=== PATIENT | female | born 1945 | race Caucasian/White ===

== ENCOUNTER 2020-11-17 12:23 | Inpatient (IN) | payer MEDICARE, OTHER, SELFPAY ==
[2020-11-17 14:03] VITALS: BP 113/61; PULSE 82; RESP 18; TEMP 36.2; O2SAT 99; BMI 18.6
[2020-11-17 14:18] LABS: MANUAL DIFF FLAG NO
[2020-11-17 14:22] LABS: Basophils Absolute Auto 0.1 X10*3/uL (0.0-0.2); Basophils Percent Auto 0.6 % (0-2); Eosinophils Absolute Auto 0.2 X10*3/uL (0.0-0.4); Hematocrit 42.3 % (37-47); Hemoglobin 13.9 g/dl (12.0-16.0); Imm Gran Abs Auto 0.02 X10*3/uL (0.00-0.03); Imm Gran Pct Auto 0.2 % (0.0-0.4); Lymphocytes Absolute Auto 1.5 X10*3/uL (1.2-4.9); Lymphocytes Percent Auto 15.3 % (20-40); Mean Corpuscular HGB Conc 32.9 g/dl (31.0-35.0); Mean Corpuscular Hemoglobin 28.7 pg (27.0-33.0); Mean Corpuscular Volume 87.2 fL (80-98); Mean Platelet Volume 8.7 fL (9.4-12.3); Monocytes Percent Auto 9.9 % (2-11); Neutrophils Absolute Auto 6.9 X10*3/uL (2.0-8.3); Platelet Count 317 X10*3/uL (160-400); Red Blood Count 4.85 X10*6/uL (4.20-5.50); Red Cell Distribution Width 13.1 % (11.0-16.0); White Blood Count 9.7 X10*3/uL (4.8-10.8)
[2020-11-17 14:30] LABS: Glucose Urine UA NEG (NEG); Leukocyte Esterase Urine 2+ (NEG); Nitrite Urine NEG (NEG); Specific Gravity - Urine <= 1.005 (1.005-1.025); UACC Culture Trigger YES; Urine Blood 1+ (NEG); Urine Ketones NEG (NEG); Urine Protein NEG (NEG-TRACE)
[2020-11-17 14:35] LABS: Appearance Urine HAZY; Color Urine YELLOW
[2020-11-17 14:40] LABS: Mucus Urine 1+ /LPF; RBC Urine 0 /HPF (0); Squamous Epithelial Cell Urine 1+ /LPF; UACC CULT YES
[2020-11-17 14:54] LABS: Anion Gap 10 (12-20); Blood Urea Nitrogen 18 mg/dL (9-16); Calcium 10.6 mg/dL (8.4-10.2); Carbon Dioxide 24 mmol/L (22-29); Chloride 111 mmol/L (96-108); Creatinine Clr Calc Pharmacy 34.4; Estimated Glomerular Filt Rate 45; Glucose Random 78 mg/dL (60-115); Sodium 141 mmol/L (135-145)
[2020-11-17 16:21] VITALS: BP 121/50; PULSE 79; RESP 17; TEMP 37; O2SAT 98
--- NOTE | 2020-11-17 16:24 | PC.NURSE ---
patient a&ox3, vss, pt awaiting ed provider, denies si/hi, will continue to monitor
--- NOTE | 2020-11-17 16:39 | ECG_ITS ---
Test Reason : GENERAL MEDICAL Blood Pressure : / mmHG Vent. Rate : 070 BPM Atrial Rate : 070 BPM P-R Int : 120 ms QRS Dur : 084 ms QT Int : 396 ms P-R-T Axes : 042 035 084 degrees QTc Int : 427 ms Normal sinus rhythm Normal ECG No previous ECGs available Referred By: Angela Morton Electronically Signed By:GAL NVOA MD
--- NOTE | 2020-11-17 16:59 | ED_ITS ---
HPI - Psych General Chief Complaint: Psychiatric Symptoms <Angela Morton NP - Last Filed: 11/18/20 00:40> Stated Complaint: depression <DAT Lazo Last Filed: 11/18/20 00:40> Time Seen by Provider: 11/17/20 16:07 <Angela Morton NP - Last Filed: 11/18/20 00:40> Source: patient <Angela Morton NP - Last Filed: 11/18/20 00:40> Mode of arrival: ambulatory <DAT Lazo Last Filed: 11/18/20 00:40> Limitations: no limitations <Angela Morton NP - Last Filed: 11/18/20 00:40> History of Present Illness HPI Narrative: 75-year-old female with a past medical history of depression, hypothyroidism , high cholesterol here with complaints of increasing depression. Patient tells me she had been taken off her lithium but restarted this ap proximately 2 weeks ago with symbiax. This is being prescribed by her psychiatrist and [place]. She did moved to [place] about 2 months ago and is working on establishing a psychiatrist here in [place]. Patient tells me that over the last week her depression has been getting worse. She tells me her has had to bathe her and wash her hair. She has had very little appetite and has had no desire to get out of bed. No suicidal thoughts. No substance use <DAT Lazo Last Filed: 11/18/20 00:40> Related Data Home Medications: Home Medications Medication Instructions Recorded Confirmed atorvastatin 20 mg tablet 1 tab PO DAILY 11/17/20 11/17/20 diazepam 10 mg tablet 1 tab PO BEDTIME 11/17/20 11/17/20 levothyroxine 50 mcg tablet 1 tab PO DAILY 11/17/20 11/17/20 linaclotide 145 mcg capsule 1 cap PO DAILY 11/17/20 11/17/20 (Linzess) lithium carbonate 150 mg capsule 1 cap PO BEDTIME 11/17/20 11/17/20 olanzapine-fluoxetine 3 mg-25 mg 1 cap PO BEDTIME 11/17/20 11/17/20 capsule polyethylene glycol 3350 17 17 g PO QPM 11/17/20 11/17/20 gram/dose oral powder (Miralax) Vitamin D3 1 PO 11/18/20 acetylcysteine 600 mg capsule (NAC) 600 mg PO BID 11/18/20 11/18/20 cholecalciferol (vitamin D3) 50 50 mcg PO DAILY 11/18/20 11/18/20 mcg (2,000 unit) capsule melatonin 10 mg tablet 10 mg PO BEDTIME PRN 11/18/20 11/18/20 <Angela Morton NP - Last Filed: 11/18/20 00:40> Allergies/Adverse Reactions: Allergies Allergy/AdvReac Type Severity Reaction Status Date / Time No Known Allergies Allergy Verified 11/17/20 14:02 <Angela Morton NP - Last Filed: 11/18/20 00:40> Review of Systems Review of Systems: Yes all other systems are reviewed and are negative <Angela Morton NP - Last Filed: 11/18/20 00:40> Constitutional: Constitutional: Reports no additional constitutional complaints, Denies body ache(s), Denies chills, Denies fever(s), Denies headache(s) and Denies weakness <Angela Morton NP - Last Filed: 11/18/20 00:40> Eyes: Eyes: Reports no additional eye complaints and Denies change in vision <Angela Morton NP - Last Filed: 11/18/20 00:40> ENT: Reports system reviewed and no additional complaints, except as documented, Denies dizziness, Denies headache(s), Denies nasal congestion, Denies nasal discharge and Denies neck pain <Angela Morton NP - Last Filed: 11/18/20 00:40> Cardiovascular: Cardiovascular: Reports no additional cardiovascular complaints, Denies chest pain, Denies leg edema and Denies dyspnea <Angela Morton NP - Last Filed: 11/18/20 00:40> Respiratory: Respiratory: Reports no additional respiratory complaints, Denies cough and Denies dyspnea <Angela Morton NP - Last Filed: 11/18/20 00:40> Gastrointestinal: Gastrointestinal: Reports no additional gastrointestinal complaints, Denies abdominal pain, Denies diarrhea, Denies nausea and Denies vomiting <Angela Morton NP - Last Filed: 11/18/20 00:40> Genitourinary: Genitourinary: Reports no additional female genitourinary complaints and Denies urinary incontinence <Angela Morton NP - Last Filed: 11/18/20 00:40> Musculoskeletal: Musculoskeletal: Reports no additional musculoskeletal complaints, Denies back pain, Denies arthralgias, Denies joint swelling, Denies neck pain, Denies numbness and Denies tingling <Angela Morton NP - Last Filed: 11/18/20 00:40> Integumentary/Breasts: Skin/Breast: Reports system reviewed and no additional complaints, except as docu and Denies rash <Angela Morton NP - Last Filed: 11/18/20 00:40> Neurologic: Reports system reviewed and no additional complaints, except as documented, Denies dizziness, Denies headache(s), Denies numbness, Denies tingling and Denies weakness <Angela Morton NP - Last Filed: 11/18/20 00:40> Psychiatric: Psychiatric: Denies anxiety, Reports depression, Denies vasquez llucinations, Denies homicidal ideation and Denies suicidal ideation <Angela Morton NP - Last Filed: 11/18/20 00:40> PMFSH Past Medical History Attestation statement: The following information was validated with the patient. <Angela Morton NP - Last Filed: 11/18/20 00:40> Source: old records reviewed and nursing notes reviewed <Angela Morton NP - Last Filed: 11/18/20 00:40> Medical History: Medical History (Updated 11/17/20 @ 17:40 by Angela Morton NP) Depression High cholesterol Hypothyroidism <Angela Morton NP - Last Filed: 11/18/20 00:40> Surgical History: Surgical History (Updated 11/17/20 @ 14:05 by Ana Lopez) Tubal ligation status <Angela Morton NP - Last Filed: 11/18/20 00:40> Social History Social History: Social History Patient Tobacco Use Status: Never used Tobacco Use of substances other than those prescribed or required for medical reasons: No Advance Directives: No Advance Directives Information Provided: Yes <Angela Morton NP - Last Filed: 11/18/20 00:40> Physical Exam Vital Signs: Vital Signs: Last Vital Signs Temp 98.4 F 11/18/20 00:32 Pulse 79 11/18/20 00:32 Resp 15 11/18/20 00:32 BP 140/95 H 11/18/20 00:32 Pulse Ox 97 11/18/20 00:32 Body Mass Index 18.6 <Angela Morton NP - Last Filed: 11/18/20 00:40> Vital Signs: Last Vital Signs Temp 98.4 F 11/18/20 00:32 Pulse 79 11/18/20 00:32 Resp 15 11/18/20 00:32 BP 140/95 H 11/18/20 00:32 Pulse Ox 97 11/18/20 00:32 Body Mass Index 18.6 <VIVIANA Shahid - Last Filed: 11/18/20 11:15> Course Course Course Narrative: 75-year-old female with a past medical history of depression, high cholesterol, hypothyroidism here with complaints of increasing depression despite medication changes with inability perform ADLs requiring assistance from her over the last week. No suicidal thoughts. History of inpatient admission for depression in the past and feels that this would be helpful for her today. No physical complaints. No concern for acute ingestion or trauma. Due to age will check labs, drug screen, EKG. Care team consult ordered. 1740-Seen by care team. Plan for inpatient BS voluntary. 0040-PLACE IN PHYSICIAN OBSERVATION PENDING PLACEMENT <Angela Morton NP - Last Filed: 11/18/20 00:40> Reevaluation(s) Reevaluation #1: 11/18/20 10 am - physician observation continued. Patient is an inpatient bed search, voluntary. No SI. She is calm and cooperative, vitally stable. No overnight events. Neuro is intact, RRR and clear lungs. Will continue to monitor. <VIVIANA Shahid - Last Filed: 11/18/20 11:15> MDM - Psych Medical Records Attestation: I reviewed the patient's medical records. <Angela Morton NP - Last Filed: 11/18/20 00:40> Lab Data Attestation: I reviewed the patient's lab results. <Angela Morton NP - Last Filed: 11/18/20 00:40> Result diagrams: : 11/17/20 14:12 11/17/20 14:12 <Angela Morton NP - Last Filed: 11/18/20 00:40> Labs: Lab Results 11/17/20 11/17/20 11/17/20 Range/Units 14:12 14:12 14:20 WBC 9.7 (4.8-10.8) X10*3/uL RBC 4.85 (4.20-5.50) X10*6/uL Hgb 13.9 (12.0-16.0) g/dl Hct 42.3 (37-47) % MCV 87.2 (80-98) fL MCH 28.7 (27.0-33.0) pg MCHC 32.9 (31.0-35.0) g/dl RDW 13.1 (11.0-16.0) % Plt Count 317 (160-400) X10*3/uL MPV 8.7 L (9.4-12.3) fL Immature Gran % (Auto) 0.2 (0.0-0.4) % Neut % (Auto) 72.0 (45-73) % Lymph % (Auto) 15.3 L (20-40) % [place] % (Auto) 9.9 (2-11) % Eos % (Auto) 2.0 (0-4) % Baso % (Auto) 0.6 (0-2) % Lymph # (Auto) 1.5 (1.2-4.9) X10*3/uL [place] # (Auto) 1.0 (0.1-1.2) X10*3/uL Eos # (Auto) 0.2 (0.0-0.4) X10*3/uL Baso # (Auto) 0.1 (0.0-0.2) X10*3/uL Abs Immat Gran (auto) 0.02 (0.00-0.03) X10*3/uL Absolute Neuts (auto) 6.9 (2.0-8.3) X10*3/uL Absolute Nucleated RBC 0.000 (0.0-0.012) X10*3/uL Nucleated RBC % (auto) 0.0 (0.0-0.2) /100WBC Sodium 141 (135-145) mmol/L Potassium 4.0 (3.3-5.1) mmol/L Chloride 111 H (96-108) mmol/L Carbon Dioxide 24 (22-29) mmol/L Anion Gap 10 L (12-20) BUN 18 H (9-16) mg/dL Creatinine 1.18 (0.5-1.4) mg/dL Estim Creat Clear Calc 34.4 Estimated GFR 45 Random Glucose 78 (60-115) mg/dL Calcium 10.6 H (8.4-10.2) mg/dL TSH 0.62 (0.32-4.0) uIU/mL Urine Color YELLOW Urine Appearance HAZY Urine pH 6.0 (5.0-8.0) Ur Specific [place] <= 1.005 (1.005-1.025) Urine Protein NEG (NEG-TRACE) MG/DL Urine Glucose (UA) NEG (NEG) MG/DL Urine Ketones NEG (NEG) MG/DL Urine Blood 1+ H (NEG) Urine Nitrite NEG (NEG) Ur Leukocyte Esterase 2+ H (NEG) Urine RBC 0 (0) /HPF Urine WBC 1-4 (0-4) /HPF Ur Squamous Epith Cells 1+ /LPF Urine Bacteria NONE /LPF Urine Mucus 1+ /LPF [place] (0.60-1.20) mmol/L Ethyl Alcohol mg/dL Coronavirus (PCR) (Negative) Influenza Type A (PCR) (Negative) Influenza Type B (PCR) (Negative) RSV RNA Qual (PCR) (Negative) 11/17/20 11/17/20 11/17/20 Range/Units 17:08 17:08 17:08 WBC (4.8-10.8) X10*3/uL RBC (4.20-5.50) X10*6/uL Hgb (12.0-16.0) g/dl Hct (37-47) % MCV (80-98) fL MCH (27.0-33.0) pg MCHC (31.0-35.0) g/dl RDW (11.0-16.0) % Plt Count (160-400) X10*3/uL MPV (9.4-12.3) fL Immature Gran % (Auto) (0.0-0.4) % Neut % (Auto) (45-73) % Lymph % (Auto) (20-40) % [place] % (Auto) (2-11) % Eos % (Auto) (0-4) % Baso % (Auto) (0-2) % Lymph # (Auto) (1.2-4.9) X10*3/uL [place] # (Auto) (0.1-1.2) X10*3/uL Eos # (Auto) (0.0-0.4) X10*3/uL Baso # (Auto) (0.0-0.2) X10*3/uL Abs Immat Gran (auto) (0.00-0.03) X10*3/uL Absolute Neuts (auto) (2.0-8.3) X10*3/uL Absolute Nucleated RBC (0.0-0.012) X10*3/uL Nucleated RBC % (auto) (0.0-0.2) /100WBC Sodium (135-145) mmol/L Potassium (3.3-5.1) mmol/L Chloride (96-108) mmol/L Carbon Dioxide (22-29) mmol/L Anion Gap (12-20) BUN (9-16) mg/dL Creatinine (0.5-1.4) mg/dL Estim Creat Clear Calc Estimated GFR Random Glucose (60-115) mg/dL Calcium (8.4-10.2) mg/dL TSH (0.32-4.0) uIU/mL Urine Color Urine Appearance Urine pH (5.0-8.0) Ur Specific [place] (1.005-1.025) Urine Protein (NEG-TRACE) MG/DL Urine Glucose (UA) (NEG) MG/DL Urine Ketones (NEG) MG/DL Urine Blood (NEG) Urine Nitrite (NEG) Ur Leukocyte Esterase (NEG) Urine RBC (0) /HPF Urine WBC (0-4) /HPF Ur Squamous Epith Cells /LPF Urine Bacteria /LPF Urine Mucus /LPF [place] 0.22 L (0.60-1.20) mmol/L Ethyl Alcohol < 10 mg/dL Coronavirus (PCR) NEGATIVE (Negative) Influenza Type A (PCR) NEGATIVE (Negative) Influenza Type B (PCR) NEGATIVE (Negative) RSV RNA Qual (PCR) NEGATIVE (Negative) <Angela Morton NP - Last Filed: 11/18/20 00:40> Lab Results 11/17/20 11/17/20 11/17/20 Range/Units 14:12 14:12 14:20 WBC 9.7 (4.8-10.8) X10*3/uL RBC 4.85 (4.20-5.50) X10*6/uL Hgb 13.9 (12.0-16.0) g/dl Hct 42.3 (37-47) % MCV 87.2 (80-98) fL MCH 28.7 (27.0-33.0) pg MCHC 32.9 (31.0-35.0) g/dl RDW 13.1 (11.0-16.0) % Plt Count 317 (160-400) X10*3/uL MPV 8.7 L (9.4-12.3) fL Immature Gran % (Auto) 0.2 (0.0-0.4) % Neut % (Auto) 72.0 (45-73) % Lymph % (Auto) 15.3 L (20-40) % [place] % (Auto) 9.9 (2-11) % Eos % (Auto) 2.0 (0-4) % Baso % (Auto) 0.6 (0-2) % Lymph # (Auto) 1.5 (1.2-4.9) X10*3/uL [place] # (Auto) 1.0 (0.1-1.2) X10*3/uL Eos # (Auto) 0.2 (0.0-0.4) X10*3/uL Baso # (Auto) 0.1 (0.0-0.2) X10*3/uL Abs Immat Gran (auto) 0.02 (0.00-0.03) X10*3/uL Absolute Neuts (auto) 6.9 (2.0-8.3) X10*3/uL Absolute Nucleated RBC 0.000 (0.0-0.012) X10*3/uL Nucleated RBC % (auto) 0.0 (0.0-0.2) /100WBC Sodium 141 (135-145) mmol/L Potassium 4.0 (3.3-5.1) mmol/L Chloride 111 H (96-108) mmol/L Carbon Dioxide 24 (22-29) mmol/L Anion Gap 10 L (12-20) BUN 18 H (9-16) mg/dL Creatinine 1.18 (0.5-1.4) mg/dL Estim Creat Clear Calc 34.4 Estimated GFR 45 Random Glucose 78 (60-115) mg/dL Calcium 10.6 H (8.4-10.2) mg/dL TSH 0.62 (0.32-4.0) uIU/mL Urine Color YELLOW Urine Appearance HAZY Urine pH 6.0 (5.0-8.0) Ur Specific [place] <= 1.005 (1.005-1.025) Urine Protein NEG (NEG-TRACE) MG/DL Urine Glucose (UA) NEG (NEG) MG/DL Urine Ketones NEG (NEG) MG/DL Urine Blood 1+ H (NEG) Urine Nitrite NEG (NEG) Ur Leukocyte Esterase 2+ H (NEG) Urine RBC 0 (0) /HPF Urine WBC 1-4 (0-4) /HPF Ur Squamous Epith Cells 1+ /LPF Urine Bacteria NONE /LPF Urine Mucus 1+ /LPF [place] (0.60-1.20) mmol/L Ethyl Alcohol mg/dL Coronavirus (PCR) (Negative) Influenza Type A (PCR) (Negative) Influenza Type B (PCR) (Negative) RSV RNA Qual (PCR) (Negative) 11/17/20 11/17/20 11/17/20 Range/Units 17:08 17:08 17:08 WBC (4.8-10.8) X10*3/uL RBC (4.20-5.50) X10*6/uL Hgb (12.0-16.0) g/dl Hct (37-47) % MCV (80-98) fL MCH (27.0-33.0) pg MCHC (31.0-35.0) g/dl RDW (11.0-16.0) % Plt Count (160-400) X10*3/uL MPV (9.4-12.3) fL Immature Gran % (Auto) (0.0-0.4) % Neut % (Auto) (45-73) % Lymph % (Auto) (20-40) % [place] % (Auto) (2-11) % Eos % (Auto) (0-4) % Baso % (Auto) (0-2) % Lymph # (Auto) (1.2-4.9) X10*3/uL [place] # (Auto) (0.1-1.2) X10*3/uL Eos # (Auto) (0.0-0.4) X10*3/uL Baso # (Auto) (0.0-0.2) X10*3/uL Abs Immat Gran (auto) (0.00-0.03) X10*3/uL Absolute Neuts (auto) (2.0-8.3) X10*3/uL Absolute Nucleated RBC (0.0-0.012) X10*3/uL Nucleated RBC % (auto) (0.0-0.2) /100WBC Sodium (135-145) mmol/L Potassium (3.3-5.1) mmol/L Chloride (96-108) mmol/L Carbon Dioxide (22-29) mmol/L Anion Gap (12-20) BUN (9-16) mg/dL Creatinine (0.5-1.4) mg/dL Estim Creat Clear Calc Estimated GFR Random Glucose (60-115) mg/dL Calcium (8.4-10.2) mg/dL TSH (0.32-4.0) uIU/mL Urine Color Urine Appearance Urine pH (5.0-8.0) Ur Specific [place] (1.005-1.025) Urine Protein (NEG-TRACE) MG/DL Urine Glucose (UA) (NEG) MG/DL Urine Ketones (NEG) MG/DL Urine Blood (NEG) Urine Nitrite (NEG) Ur Leukocyte Esterase (NEG) Urine RBC (0) /HPF Urine WBC (0-4) /HPF Ur Squamous Epith Cells /LPF Urine Bacteria /LPF Urine Mucus /LPF [place] 0.22 L (0.60-1.20) mmol/L Ethyl Alcohol < 10 mg/dL Coronavirus (PCR) NEGATIVE (Negative) Influenza Type A (PCR) NEGATIVE (Negative) Influenza Type B (PCR) NEGATIVE (Negative) RSV RNA Qual (PCR) NEGATIVE (Negative) <VIVIANA Shahid - Last Filed: 11/18/20 11:15> ECG Data Attestation: I personally reviewed and interpreted this ECG as follows: <Angela Morton NP - Last Filed: 11/18/20 00:40> ECG interpretation date: 11/17/20 <Angela Morton NP - Last Filed: 11/18/20 00:40> ECG interpretation time: 16:57 <Angela Morton NP - Last Filed: 11/18/20 00:40> Interpretation: Normal sinus rhythm with a rate of 70, normal SD, normal QRS, normal QT <Angela Morton NP - Last Filed: 11/18/20 00:40> Discharge Plan Discharge Clinical Impression: Depression <Angela Morton NP - Last Filed: 11/18/20 00:40> Patient Disposition: Admitted As Inpatient <Angela Morton NP - Last Filed: 11/18/20 00:40>
[2020-11-17 17:18] LABS: Thyroid Stimulating Hormone 0.62 uIU/mL (0.32-4.0)
[2020-11-17 17:51] LABS: Ethanol < 10 mg/dL; Lithium 0.22 mmol/L (0.60-1.20)
[2020-11-17 17:56] LABS: Influenza A PCR NEGATIVE (Negative); Influenza B PCR NEGATIVE (Negative); Resp Syncy Virus RNA Qual PCR NEGATIVE (Negative); SARS COV2 PCR INHOUSE NEGATIVE (Negative)
[2020-11-17 18:00] VITALS: BP 125/88; PULSE 70; RESP 18; TEMP 36.7; O2SAT 97
--- NOTE | 2020-11-17 18:00 | PC.NURSE ---
pt refusing to take valium at this time, pt wants it at 830-9pm.
[2020-11-17] MEDS: diazePAM 5 MG TABLET PO (18:01)
--- NOTE | 2020-11-17 18:02 | PC.NURSE ---
patient changed her mind and decided to take the valium
--- NOTE | 2020-11-17 18:08 | PHA.MEDREC ---
Pharmacy Consult ? Medication Reconciliation Pharmacy has completed the medication reconciliation.
--- NOTE | 2020-11-17 19:03 | PC.NURSE ---
patient a&ox3, vss, family at bedside, pt awaiting bed, will talk with provider and continue to monitor.
--- NOTE | 2020-11-17 19:35 | PC.NURSE ---
patient changed over
[2020-11-17 20:56] VITALS: RESP 17
--- NOTE | 2020-11-17 20:57 | PC.NURSE ---
patient currently sleeping, rr 17, will continue to monitor.
[2020-11-17 22:31] VITALS: BP 128/72; PULSE 77; RESP 18; TEMP 36.7; O2SAT 98
[2020-11-18] MEDS: diazePAM 10 MG TABLET PO ×2 (00:03→22:05)
[2020-11-18 00:19] VITALS: BP 172/92; PULSE 61; RESP 16
[2020-11-18 00:32] VITALS: BP 140/95; PULSE 79; RESP 15; TEMP 36.9; O2SAT 97
[2020-11-18] MEDS: OLANZapine 2.5 MG TABLET PO (00:49)
[2020-11-18] MEDS: Lithium Carbonate 300 MG TABLET 150 MG PO ×2 (00:49→22:05)
[2020-11-18] MEDS: FLUoxetine HCl 20 MG CAPSULE PO (00:49)
[2020-11-18] MEDS: polyethylene glycoL 3350 17 GM POWD.PACK PO ×2 (00:50→22:56)
--- NOTE | 2020-11-18 00:58 | PC.NURSE ---
Patient just got transferred from ED, patient was ambulatory without gait deficit, seems mildly confused, patient was very particular of her medication and most of her medication were non-generic, instead of Olanzapine/Fluoxitine combo medication, patient was administered Olanzapine 2.5 mg and 20 mg of Fluoxitine as approved by provider/agreed upon by the patient, patient called her to bring her medication in the morning and very kidly agreed, VSS, behavior pleasant and appropriate, will continue to monitor.
--- NOTE | 2020-11-18 06:10 | PC.NURSE ---
Patient slept through the night, no distress observed/reported, out of room x 2 for bathroom use and back, gait intact, appetite good, behavior pleasant and appropriate, will bring med in the morning needs to be verified by the pharmacy, deposition voluntary inpatient bed search, will continue to monitor.
[2020-11-18] MEDS: Levothyroxine Sodium 50 MCG TABLET PO (06:44)
[2020-11-18] MEDS: Atorvastatin Calcium 20 MG TABLET PO (09:45)
--- NOTE | 2020-11-18 11:06 | PC.NURSE ---
IN TO SEE PT. PT CALM,COOPERATIVE. BEDSEARCH CONTINUES
[2020-11-18 14:08] VITALS: BP 130/66; PULSE 79; TEMP 36.6; O2SAT 98
--- NOTE | 2020-11-18 15:58 | HO.PSYADMNOT ---
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 The patient reported mood symptoms since her early 20s when she was diagnosed of treatment resistant depression. She reported that up present episode this started 6 years ago when they have to discontinue lithium due to nephrotoxicity unchanged today in her mood has worsened with depressive symptoms elicited by depressed mood, anhedonia, lack of energy, feelings of hopelessness or worthlessness on with inability to perform her own ADLs. During the intake interview, the patient reported mostly depressive symptoms described above but also she had manic episodes in the past. Her 1st manic episode was at the age of 27 that required inpatient level of care and she got at least 2 minor hypomanic episodes in the last 50 years. Most of her mood episodes are major depressive disorder. She has tried, as per her report ?all the medications available . She has tried ECT, ketamine treatment. The patient denies psychotic symptoms, she denies active suicidal ideation and she able to contract for safety in the unit. She reported that her depressive symptoms are so strong that impairs her daily living. Past Psychiatric History: Her 1st psychiatric admission was at the age of 27 for a manic episode. She has at least 3 psychiatric admissions the last 1 at [facility] in 2018. She has tried ECT at least 14 sessions her last admission and she also has tried ketamine infusions. Medical Evaluation Reviewed: Hospitalist Rehan Pending [facility] Medical History Depression High cholesterol Hypothyroidism Surgical History Tubal ligation status Family History: Her mother suffered from paranoid schizophrenia. Her father used to abuse alcohol. Social History: The patient was born and raised in [place] by both parents. She attended regular school and eventually she went to college. 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 She was in her early 20s, she never had children and currently she is living with her who is her main support Substance History: Denies Trauma History: Denies Diagnostics Vital Signs (24Hr): Vital Signs - 24 hr 11/17/20 16:21 11/17/20 18:00 11/17/20 20:56 Temperature 98.6 F 98.0 F Pulse Rate 79 70 Respiratory Rate 17 18 17 Blood Pressure 121/50 L 125/88 Pulse Oximetry 98 97 11/17/20 22:31 11/18/20 00:19 11/18/20 00:32 Temperature 98.1 F 98.4 F Pulse Rate 77 61 79 Respiratory Rate 18 16 15 Blood Pressure 128/72 172/92 H 140/95 H Pulse Oximetry 98 97 11/18/20 14:08 Temperature 97.9 F Pulse Rate 79 Respiratory Rate Blood Pressure 130/66 Pulse Oximetry 98 Body Mass Index 18.6 Labs Results: 11/17/20 14:12 11/17/20 14:12 Labs: Laboratory Results - last 48 hr 11/17/20 11/17/20 11/17/20 14:12 14:12 14:20 WBC 9.7 RBC 4.85 Hgb 13.9 Hct 42.3 MCV 87.2 MCH 28.7 MCHC 32.9 RDW 13.1 Plt Count 317 MPV 8.7 L Immature Gran % (Auto) 0.2 Neut % (Auto) 72.0 Lymph % (Auto) 15.3 L [place] % (Auto) 9.9 Eos % (Auto) 2.0 Baso % (Auto) 0.6 Lymph # (Auto) 1.5 [place] # (Auto) 1.0 Eos # (Auto) 0.2 Baso # (Auto) 0.1 Abs Immat Gran (auto) 0.02 Absolute Neuts (auto) 6.9 Absolute Nucleated RBC 0.000 Nucleated RBC % (auto) 0.0 Sodium 141 Potassium 4.0 Chloride 111 H Carbon Dioxide 24 Anion Gap 10 L BUN 18 H Creatinine 1.18 Estim Creat Clear Calc 34.4 Estimated GFR 45 Random Glucose 78 Calcium 10.6 H TSH 0.62 Urine Color YELLOW Urine Appearance HAZY Urine pH 6.0 Ur Specific [place] <= 1.005 Urine Protein NEG Urine Glucose (UA) NEG Urine Ketones NEG Urine Blood 1+ H Urine Nitrite NEG Ur Leukocyte Esterase 2+ H Urine RBC 0 Urine WBC 1-4 Ur Squamous Epith Cells 1+ Urine Bacteria NONE Urine Mucus 1+ [place] Ethyl Alcohol Coronavirus (PCR) Influenza Type A (PCR) Influenza Type B (PCR) RSV RNA Qual (PCR) 11/17/20 11/17/20 11/17/20 17:08 17:08 17:08 WBC RBC Hgb Hct MCV MCH MCHC RDW Plt Count MPV Immature Gran % (Auto) Neut % (Auto) Lymph % (Auto) [place] % (Auto) Eos % (Auto) Baso % (Auto) Lymph # (Auto) [place] # (Auto) Eos # (Auto) Baso # (Auto) Abs Immat Gran (auto) Absolute Neuts (auto) Absolute Nucleated RBC Nucleated RBC % (auto) Sodium Potassium Chloride Carbon Dioxide Anion Gap BUN Creatinine Estim Creat Clear Calc Estimated GFR Random Glucose Calcium TSH Urine Color Urine Appearance Urine pH Ur Specific [place] Urine Protein Urine Glucose (UA) Urine Ketones Urine Blood Urine Nitrite Ur Leukocyte Esterase Urine RBC Urine WBC Ur Squamous Epith Cells Urine Bacteria Urine Mucus [place] 0.22 L Ethyl Alcohol < 10 Coronavirus (PCR) NEGATIVE Influenza Type A (PCR) NEGATIVE Influenza Type B (PCR) NEGATIVE RSV RNA Qual (PCR) NEGATIVE Meds/Allergies Meds Home Medications Acetaminophen (Acetaminophen 325 Mg Tablet) 650 mg PO Q6H PRN PRN Reason: Headache/Pain Mild Scale (1-3) Al Hydroxide/Mg Hydroxide (Magnesium Hydrox/Alum Hydrox 30 Ml Oral.Susp) 30 ml PO Q6H PRN PRN Reason: Heartburn/Nausea Atorvastatin Calcium (Atorvastatin Calcium 20 Mg Tablet) 20 mg PO DAILY [facility] Last Admin: 11/18/20 09:45 Dose: 20 mg Documented by: Diazepam (Diazepam 10 Mg Tablet) 10 mg PO BEDTIME [facility] Last Admin: 11/18/20 00:03 Dose: 10 mg Documented by: Levothyroxine Sodium (Levothyroxine Sodium 50 Mcg Tablet) 50 mcg PO DAILY@0600 [facility] Last Admin: 11/18/20 06:44 Dose: 50 mcg Documented by: [place] Carbonate ([place] Carbonate 300 Mg Tablet) 150 mg PO BEDTIME [facility] Last Admin: 11/18/20 00:49 Dose: 150 mg Documented by: Melatonin (Melatonin 3 Mg Tablet) 9 mg PO BEDTIME PRN PRN Reason: Insomnia Patient Own Med ( Linaclotide [Linzess ] 145 Mcg Capsule) 1 each PO DAILY [facility] Last Admin: 11/18/20 09:45 Dose: 1 each Documented by: Patient Own Med ( Olanzapine- Fluoxetine 3-25 Mg Capsule) 1 each PO BEDTIME [facility] Pharmacy Consult (Consult Rx Perform Med Rec) 1 each MISCELLANE ONCE PRN PRN Reason: Consult order Polyethylene Glycol (Polyethylene Glycol 3350 17 Gm Powd.Pack) 17 gm PO BEDTIME [facility] Last Admin: 11/18/20 00:50 Dose: 17 gm Documented by: Trazodone HCl (Trazodone Hcl 50 Mg Tablet) 50 mg PO BEDTIME PRN PRN Reason: Insomnia Vitamin D (Cholecalciferol (Vitamin D3) 25 Mcg Tablet) 50 mcg PO DAILY [facility] Allergies Allergies Allergy/AdvReac Type Severity Reaction Status Date / Time No Known Allergies Allergy Verified 11/17/20 14:02 Mental Status Exam Mental Status Exam Patient Appearance: Well Grooomed (Very thin) Patient Orientation: Person, Place, Time and Situation Level of Consciousness: Awake Patient Behavior: Appropriate and Cooperative Mood Description: Calm and Depressed Affect Description: Constricted Patient Cognition Impaired: No Ability to Follow Directions: Good Speech Pattern: Clear and Soft-Spoken Hallucinations: None Delusions: Not Present Thought Process: Goal Oriented Thought Content: positive for Circumstantial Depressive Symptoms: Changes in Appetite, Significant Weight Loss, Loss of Int. in Activity, Feelings of Worthlessness, Feelings of Guilt and Unhappiness Abnormal Motor Activity Signs and Symptoms: Tremors Judgement: Fair Judgement and Insight: Insight good. Assessment & Plan Assessment & Plan (1) Bipolar 1 disorder, depressed, severe: Status: Acute Code(s): F31.4 - Bipolar disorder, current episode depressed, severe, without psychotic features (2) Chronic nephropathy: Status: Acute Code(s): N03.9 - Chronic nephritic syndrome with unspecified morphologic changes Assessment and Plan: The patient is an elderly female with a long history of mood symptoms that started in her 20s with at least 3 admissions into the hospital. The patient had manic episodes but mostly depressive symptoms as she has failed to surrounding therapeutic interventions such as ECT, ketamine infusions and several medication trials. Plan 1. Continue same treatment hospice medication reconciliation. 2. Gather collateral information. 3. Blood work which TSH, basic metabolic panel, CBC with differential, folate level, etc. Patient educated on: diagnosis, medication risk/benefits, therapeutic strategies and medical condition Informed Consent: understands Reason for continued inpatient stay Substantial Risk for: inability to function, rapid decompensation and med/psych decompensation
[2020-11-18 16:30] VITALS: BP 129/75; PULSE 72; RESP 18; TEMP 36.9; O2SAT 100
--- NOTE | 2020-11-18 21:34 | PC.ADMIT ---
Patient admitted from ER @2:30pm. CV signed. Pt able to participate in Admission Assessment and answer questions; spouse was available for part of assessment, at times patient deferred questions to to answer in terms of medications. Patient reports being diagnosed with Bipolar disorder in her 20s, being well managed until 6 years ago when taken off lithium, since has struggled with treatment resistant depression trying numerous medications and treatments while living in [place]. Recently moved to the [facility] two months ago with no local providers. Patient reports struggling with taking care of her self and not being able to function, I just couldn't go on like this and that is what brought me into the hospital. Denies SI/HI/AVH. Tremors noted when signing releases, patient reports tremors to be chronic bothering her more sometimes than others. Reports decrease in appetite, with a recent weight loss of ~10lbs. Quiet, cooperative throughout assessment, appropriate eye contact. Anhedonia, lack of interst, increase fatigue, sense of tenseness during assessment. Withdrawn/Isolative wanting to go to room after her spouse left. Oriented to the unit, Admission forms signed. Patient contracts for safety. Placed on 15 min safety checks.
[2020-11-18] MEDS: Melatonin 3 MG TABLET 9 MG PO (22:05)
[2020-11-19 06:00] VITALS: BP 135/67; PULSE 72; RESP 16; TEMP 36.4; O2SAT 100
[2020-11-19] MEDS: Levothyroxine Sodium 50 MCG TABLET PO (06:44)
[2020-11-19 06:59] LABS: Estimated Average Glucose 103 mg/dL; Hemoglobin A1c % 5.2 %
[2020-11-19 07:00] VITALS: BMI 23.3
[2020-11-19 07:10] LABS: Lithium 0.34 mmol/L (0.60-1.20)
[2020-11-19 07:33] LABS: Alanine Aminotransferase 13 U/L (0-31); Albumin Level 3.9 g/dL (3.5-5.0); Alkaline Phosphatase 49 U/L (39-117); Anion Gap 9 (12-20); Aspartate Amino Transferase 14 U/L (5-31); Bilirubin Direct 0.2 mg/dL (0.0-0.5); Bilirubin Total 0.5 mg/dL (0.0-1.0); Blood Urea Nitrogen 21 mg/dL (9-16); Calcium 10.4 mg/dL (8.4-10.2); Carbon Dioxide 27 mmol/L (22-29); Chloride 111 mmol/L (96-108); Cholesterol 170 mg/dL; Creatinine Clr Calc Pharmacy 37.2; Estimated Glomerular Filt Rate 49; Glucose Fasting 93 mg/dL (60-99); HDL Cholesterol 62 mg/dL; LDL Cholesterol Calculated 96 mg/dl; Potassium 3.8 mmol/L (3.3-5.1); Sodium 143 mmol/L (135-145); Total Protein 5.9 g/dL (6.5-8.0); Triglycerides 62 mg/dL
[2020-11-19] MEDS: Cholecalciferol (Vitamin D3) 25 MCG TABLET 50 MCG PO (08:58)
[2020-11-19 12:14] VITALS: BMI 18.6
--- NOTE | 2020-11-19 12:18 | MHC.CLN ---
RE: CONSULT PT IS MODERATELY MALNOURISHED PT WITH MILDLY DEPLETED SUBCUTANEOUS FAT AND MUSCLE MASS, BMI 18.6 AND CHRONIC POOR PO INTAKE >1 MONTH PER PT. PT WITH REPORTED 10# WT LOSS RECENTLY BUT NO TIME FRAME OFFERED DIET RX: REGULAR-APPROPRIATE RECOMMEND ADDING ENSURE BID TO INCREASE KCALS SUPPLEMENT TO PROVIDE 700KCALS, 40G PROTEIN MONITOR PO INTAKE CLOSELY AND WEIGH WEEKLY SEE ALSO CLINICAL NUTRITION ASSESSMENT
--- NOTE | 2020-11-19 14:08 | HO.PSYCHPN ---
Subjective Subjective Date of Service: 11/19/20 Reason For Visit: depression Subjective Notes: Conditional Voluntary Interim History: The patient was assessed today and she reports depressive symptoms with lack of energy and anhedonia. We did blood work today and we have the results of 11/17 and her creatinine level on both samples are under normal values, only the BUN is slightly high. Her lithium level is 0.34. We discussed with the patient treatment options and she agreed to increase lithium up to 300 mg p.o. q.h.s. aunt check lithium level and basic metabolic panel on Monday. She agreed to take decisions will sign the note regarding the dose of fluoxetine. Medication Compliance: Yes Side effects from medications: No Attending Groups: Yes Review of Systems Acute medical concerns: No Medical Review of Systems: unchanged Mental Status Exam Mental Status Exam Patient Appearance: Well Grooomed Patient Orientation: Person, Place, Time and Situation Level of Consciousness: Awake Patient Behavior: Appropriate Mood Description: Depressed Affect Description: Constricted Patient Cognition Impaired: No Ability to Follow Directions: Good Speech Pattern: Clear Hallucinations: None Delusions: Not Present Thought Process: Goal Oriented Thought Content: positive for Intact Judgement: Fair Diagnostics Vital Signs (24Hr): Vital Signs - 24 hr 11/18/20 16:30 11/19/20 06:00 Temperature 98.5 F 97.6 F Pulse Rate 72 72 Respiratory Rate 18 16 Blood Pressure 129/75 135/67 Pulse Oximetry 100 100 Body Mass Index 18.6 Labs Results: 11/17/20 14:12 11/19/20 06:38 Labs: Laboratory Results - last 48 hr 11/17/20 11/17/20 11/17/20 14:12 14:12 14:20 WBC 9.7 RBC 4.85 Hgb 13.9 Hct 42.3 MCV 87.2 MCH 28.7 MCHC 32.9 RDW 13.1 Plt Count 317 MPV 8.7 L Immature Gran % (Auto) 0.2 Neut % (Auto) 72.0 Lymph % (Auto) 15.3 L [place] % (Auto) 9.9 Eos % (Auto) 2.0 Baso % (Auto) 0.6 Lymph # (Auto) 1.5 [place] # (Auto) 1.0 Eos # (Auto) 0.2 Baso # (Auto) 0.1 Abs Immat Gran (auto) 0.02 Absolute Neuts (auto) 6.9 Absolute Nucleated RBC 0.000 Nucleated RBC % (auto) 0.0 Sodium 141 Potassium 4.0 Chloride 111 H Carbon Dioxide 24 Anion Gap 10 L BUN 18 H Creatinine 1.18 Estim Creat Clear Calc 34.4 Estimated GFR 45 Random Glucose 78 Fasting Glucose Estimat Average Glucose Hemoglobin A1c % Calcium 10.6 H Total Bilirubin Direct Bilirubin AST ALT Alkaline Phosphatase Total Protein Albumin Triglycerides Cholesterol LDL Cholesterol, Calc HDL Cholesterol TSH 0.62 Urine Color YELLOW Urine Appearance HAZY Urine pH 6.0 Ur Specific [place] <= 1.005 Urine Protein NEG Urine Glucose (UA) NEG Urine Ketones NEG Urine Blood 1+ H Urine Nitrite NEG Ur Leukocyte Esterase 2+ H Urine RBC 0 Urine WBC 1-4 Ur Squamous Epith Cells 1+ Urine Bacteria NONE Urine Mucus 1+ [place] Ethyl Alcohol Coronavirus (PCR) Influenza Type A (PCR) Influenza Type B (PCR) RSV RNA Qual (PCR) 11/17/20 11/17/20 11/17/20 17:08 17:08 17:08 WBC RBC Hgb Hct MCV MCH MCHC RDW Plt Count MPV Immature Gran % (Auto) Neut % (Auto) Lymph % (Auto) [place] % (Auto) Eos % (Auto) Baso % (Auto) Lymph # (Auto) [place] # (Auto) Eos # (Auto) Baso # (Auto) Abs Immat Gran (auto) Absolute Neuts (auto) Absolute Nucleated RBC Nucleated RBC % (auto) Sodium Potassium Chloride Carbon Dioxide Anion Gap BUN Creatinine Estim Creat Clear Calc Estimated GFR Random Glucose Fasting Glucose Estimat Average Glucose Hemoglobin A1c % Calcium Total Bilirubin Direct Bilirubin AST ALT Alkaline Phosphatase Total Protein Albumin Triglycerides Cholesterol LDL Cholesterol, Calc HDL Cholesterol TSH Urine Color Urine Appearance Urine pH Ur Specific [place] Urine Protein Urine Glucose (UA) Urine Ketones Urine Blood Urine Nitrite Ur Leukocyte Esterase Urine RBC Urine WBC Ur Squamous Epith Cells Urine Bacteria Urine Mucus [place] 0.22 L Ethyl Alcohol < 10 Coronavirus (PCR) NEGATIVE Influenza Type A (PCR) NEGATIVE Influenza Type B (PCR) NEGATIVE RSV RNA Qual (PCR) NEGATIVE 11/19/20 11/19/20 11/19/20 06:38 06:38 06:38 WBC RBC Hgb Hct MCV MCH MCHC RDW Plt Count MPV Immature Gran % (Auto) Neut % (Auto) Lymph % (Auto) [place] % (Auto) Eos % (Auto) Baso % (Auto) Lymph # (Auto) [place] # (Auto) Eos # (Auto) Baso # (Auto) Abs Immat Gran (auto) Absolute Neuts (auto) Absolute Nucleated RBC Nucleated RBC % (auto) Sodium 143 Potassium 3.8 Chloride 111 H Carbon Dioxide 27 Anion Gap 9 L BUN 21 H Creatinine 1.09 Estim Creat Clear Calc 37.2 Estimated GFR 49 Random Glucose Fasting Glucose 93 Estimat Average Glucose 103 Hemoglobin A1c % 5.2 Calcium 10.4 H Total Bilirubin 0.5 Direct Bilirubin 0.2 AST 14 ALT 13 Alkaline Phosphatase 49 Total Protein 5.9 L Albumin 3.9 Triglycerides 62 Cholesterol 170 LDL Cholesterol, Calc 96 HDL Cholesterol 62 TSH Urine Color Urine Appearance Urine pH Ur Specific [place] Urine Protein Urine Glucose (UA) Urine Ketones Urine Blood Urine Nitrite Ur Leukocyte Esterase Urine RBC Urine WBC Ur Squamous Epith Cells Urine Bacteria Urine Mucus [place] 0.34 L Ethyl Alcohol Coronavirus (PCR) Influenza Type A (PCR) Influenza Type B (PCR) RSV RNA Qual (PCR) Medications Medications Current Medications Generic Name Dose Route Start Last Admin Trade Name Freq PRN Reason Stop Dose Admin Acetaminophen 650 mg 11/18/20 15:02 Acetaminophen 325 Mg Tablet PO Q6H PRN Headache/Pain Mild Scale (1-3) Al Hydroxide/Mg Hydroxide 30 ml 11/18/20 15:02 Magnesium Hydrox/Alum Hydrox 30 Ml Oral.Susp PO Q6H PRN Heartburn/Nausea Atorvastatin Calcium 20 mg 11/19/20 21:00 Atorvastatin Calcium 20 Mg Tablet PO BEDTIME JO Diazepam 10 mg 11/17/20 23:30 11/18/20 22:05 Diazepam 10 Mg Tablet PO 10 mg BEDTIME JO Administration Levothyroxine Sodium 50 mcg 11/18/20 06:00 11/19/20 06:44 Levothyroxine Sodium 50 Mcg Tablet PO 50 mcg DAILY@0600 JO Administration Melatonin 9 mg 11/18/20 21:00 11/18/20 22:05 Melatonin 3 Mg Tablet PO 9 mg BEDTIME JO Administration Patient Own Med ( 1 each 11/18/20 09:00 11/19/20 09:12 Linaclotide [Linzess PO Not Given ] 145 Mcg Capsule) DAILY JO Patient Own Med ( 1 each 11/18/20 21:00 11/18/20 22:06 Olanzapine- PO 1 each Fluoxetine 3-25 Mg BEDTIME JO Administration Capsule) Pharmacy Consult 1 each 11/17/20 17:02 Consult Rx Perform Med Rec MISCELLANE ONCE PRN Consult order Polyethylene Glycol 17 gm 11/18/20 21:00 11/18/20 22:56 Polyethylene Glycol 3350 17 Gm Powd.Pack PO 17 gm BEDTIME JO Administration Trazodone HCl 50 mg 11/18/20 15:02 Trazodone Hcl 50 Mg Tablet PO BEDTIME PRN Insomnia Vitamin D 50 mcg 11/19/20 09:00 11/19/20 08:58 Cholecalciferol (Vitamin D3) 25 Mcg Tablet PO 50 mcg DAILY JO Administration Allergies Allergies Allergy/AdvReac Type Severity Reaction Status Date / Time No Known Allergies Allergy Verified 11/17/20 14:02 Assessment & Plan Assessment & Plan (1) Bipolar 1 disorder, depressed, severe: Status: Acute Code(s): F31.4 - Bipolar disorder, current episode depressed, severe, without psychotic features (2) Chronic nephropathy: Status: Acute Code(s): N03.9 - Chronic nephritic syndrome with unspecified morphologic changes Assessment and Plan: The patient is an elderly female with a long history of mood symptoms that started in her 20s with at least 3 admissions into the hospital. The patient had manic episodes but mostly depressive symptoms as she has failed to surrounding therapeutic interventions such as ECT, ketamine infusions and several medication trials. Plan 1. Increase [place] 3. Blood work which basic metabolic panel, and LITH for Monday Greater than 50% of the session was spent on counseling and/or coordination of care Reason for contiued inpatient stay Substantial Risk for: inability to function, rapid decompensation and med/psych decompensation
[2020-11-19 17:54] VITALS: BP 132/60; PULSE 76; RESP 17; TEMP 37.1; O2SAT 95
[2020-11-19 18:07] VITALS: BMI 18.5
[2020-11-19] MEDS: Acetaminophen 325 MG TABLET 650 MG PO (18:44)
[2020-11-19] MEDS: Melatonin 3 MG TABLET 9 MG PO (20:07)
[2020-11-19] MEDS: Lithium Carbonate 300 MG TABLET PO (20:07)
[2020-11-19] MEDS: polyethylene glycoL 3350 17 GM POWD.PACK PO (20:07)
[2020-11-19] MEDS: diazePAM 10 MG TABLET PO (20:08)
[2020-11-19] MEDS: Atorvastatin Calcium 20 MG TABLET PO (20:08)
[2020-11-20] MEDS: Levothyroxine Sodium 50 MCG TABLET PO (05:52)
[2020-11-20 06:00] VITALS: BP 130/58; PULSE 66; RESP 18; TEMP 36; O2SAT 99
[2020-11-20] MEDS: Cholecalciferol (Vitamin D3) 25 MCG TABLET 50 MCG PO (09:28)
--- NOTE | 2020-11-20 12:24 | HO.PSYCHPN ---
Subjective Subjective Date of Service: 11/20/20 Reason For Visit: depression Subjective Notes: Conditional Voluntary Interim History: Nursing staff reported that she has been confused but very pleasant. She refused to shower yesterday. Today the patient reported no changes of her dysphoria but she is willing to go to groups and keep herself busy. Medication Compliance: Yes Side effects from medications: No Attending Groups: Yes Review of Systems Acute medical concerns: No Medical Review of Systems: unchanged Mental Status Exam Mental Status Exam Patient Appearance: Appropriate Patient Orientation: Person, Place, Time and Situation Level of Consciousness: Awake Patient Behavior: Appropriate and Cooperative Mood Description: Calm and Depressed Affect Description: Constricted Patient Cognition Impaired: No Ability to Follow Directions: Good Speech Pattern: Clear Memory Description: Intact Hallucinations: None Delusions: Not Present Thought Process: Linear Thought Content: positive for Circumstantial Depressive Symptoms: Increased Anxiety, Changes in Appetite, Loss of Int. in Activity and Feelings of Worthlessness Judgement: Fair Diagnostics Vital Signs (24Hr): Vital Signs - 24 hr 11/19/20 17:54 11/20/20 06:00 Temperature 98.8 F 96.8 F Pulse Rate 76 66 Respiratory Rate 17 18 Blood Pressure 132/60 130/58 L Pulse Oximetry 95 99 Body Mass Index 18.5 Labs Results: 11/17/20 14:12 11/19/20 06:38 Labs: Laboratory Results - last 48 hr 11/19/20 11/19/20 11/19/20 06:38 06:38 06:38 Sodium 143 Potassium 3.8 Chloride 111 H Carbon Dioxide 27 Anion Gap 9 L BUN 21 H Creatinine 1.09 Estim Creat Clear Calc 37.2 Estimated GFR 49 Fasting Glucose 93 Estimat Average Glucose 103 Hemoglobin A1c % 5.2 Calcium 10.4 H Total Bilirubin 0.5 Direct Bilirubin 0.2 AST 14 ALT 13 Alkaline Phosphatase 49 Total Protein 5.9 L Albumin 3.9 Triglycerides 62 Cholesterol 170 LDL Cholesterol, Calc 96 HDL Cholesterol 62 [place] 0.34 L Medications Medications Current Medications Generic Name Dose Route Start Last Admin Trade Name Freq PRN Reason Stop Dose Admin Acetaminophen 650 mg 11/18/20 15:02 11/19/20 18:44 Acetaminophen 325 Mg Tablet PO 650 mg Q6H PRN Administration Headache/Pain Mild Scale (1-3) Al Hydroxide/Mg Hydroxide 30 ml 11/18/20 15:02 Magnesium Hydrox/Alum Hydrox 30 Ml Oral.Susp PO Q6H PRN Heartburn/Nausea Atorvastatin Calcium 20 mg 11/19/20 21:00 11/19/20 20:08 Atorvastatin Calcium 20 Mg Tablet PO 20 mg BEDTIME JO Administration Diazepam 10 mg 11/17/20 23:30 11/19/20 20:08 Diazepam 10 Mg Tablet PO 10 mg BEDTIME JO Administration Levothyroxine Sodium 50 mcg 11/18/20 06:00 11/20/20 05:52 Levothyroxine Sodium 50 Mcg Tablet PO 50 mcg DAILY@0600 JO Administration [place] Carbonate 300 mg 11/19/20 21:00 11/19/20 20:07 [place] Carbonate 300 Mg Tablet PO 300 mg BEDTIME JO Administration Melatonin 9 mg 11/18/20 21:00 11/19/20 20:07 Melatonin 3 Mg Tablet PO 9 mg BEDTIME JO Administration Patient Own Med ( 1 each 11/18/20 09:00 11/20/20 09:51 Linaclotide [Linzess PO Not Given ] 145 Mcg Capsule) DAILY JO Patient Own Med ( 1 each 11/18/20 21:00 11/19/20 20:07 Olanzapine- PO 1 each Fluoxetine 3-25 Mg BEDTIME JO Administration Capsule) Pharmacy Consult 1 each 11/17/20 17:02 Consult Rx Perform Med Rec MISCELLANE ONCE PRN Consult order Polyethylene Glycol 17 gm 11/18/20 21:00 11/19/20 20:07 Polyethylene Glycol 3350 17 Gm Powd.Pack PO 17 gm BEDTIME JO Administration Trazodone HCl 50 mg 11/18/20 15:02 Trazodone Hcl 50 Mg Tablet PO BEDTIME PRN Insomnia Vitamin D 50 mcg 11/19/20 09:00 11/20/20 09:28 Cholecalciferol (Vitamin D3) 25 Mcg Tablet PO 50 mcg DAILY JO Administration Allergies Allergies Allergy/AdvReac Type Severity Reaction Status Date / Time No Known Allergies Allergy Verified 11/17/20 14:02 Assessment & Plan Assessment & Plan (1) Bipolar 1 disorder, depressed, severe: Status: Acute Code(s): F31.4 - Bipolar disorder, current episode depressed, severe, without psychotic features (2) Chronic nephropathy: Status: Acute Code(s): N03.9 - Chronic nephritic syndrome with unspecified morphologic changes Assessment and Plan: The patient is an elderly female with a long history of mood symptoms that started in her 20s with at least 3 admissions into the hospital. The patient had manic episodes but mostly depressive symptoms as she has failed to surrounding therapeutic interventions such as ECT, ketamine infusions and several medication trials. Plan 1. Keep [place] 300 mg p.o. q.h.s. 3. Blood work which basic metabolic panel, and LITH for Monday Greater than 50% of the session was spent on counseling and/or coordination of care Patient educated on: diagnosis, therapeutic strategies and medical condition Informed Consent: understands Reason for contiued inpatient stay Substantial Risk for: inability to function, rapid decompensation and med/psych decompensation
--- NOTE | 2020-11-20 16:01 | MHC.CLN ---
NUTRITION VISITED WITH PATIENT AND REPORTS THAT IS EATING THREE MEALS A DAY AND EATING WELL. NURSE CONFIRMS THAT PATIENT IS EATING WELL. CONTINUE REGULAR DIET AND ENSURE 240 ML BID.
[2020-11-20 18:00] VITALS: BP 109/63; PULSE 79; RESP 17; TEMP 36.9; O2SAT 98
[2020-11-20] MEDS: polyethylene glycoL 3350 17 GM POWD.PACK PO (19:38)
[2020-11-20] MEDS: diazePAM 10 MG TABLET PO (19:39)
[2020-11-20] MEDS: Lithium Carbonate 300 MG TABLET PO (19:39)
[2020-11-20] MEDS: Melatonin 3 MG TABLET 9 MG PO (19:40)
[2020-11-20] MEDS: Atorvastatin Calcium 20 MG TABLET PO (19:40)
[2020-11-21 06:00] VITALS: BP 117/56; PULSE 77; RESP 16; TEMP 36.9; O2SAT 97
[2020-11-21] MEDS: Levothyroxine Sodium 50 MCG TABLET PO (06:20)
[2020-11-21] MEDS: Cholecalciferol (Vitamin D3) 25 MCG TABLET 50 MCG PO (08:57)
--- NOTE | 2020-11-21 09:56 | P.PNPSI_ITS ---
Subjective Subjective Date of Service: 11/21/20 Reason For Visit: depression Subjective Notes: Conditional Voluntary Interim History: Staff has noticed that she looks slightly confused at hs. She has participated in groups and she is pleasant. So far, no changes on her dysphpria, no side effects with the increase of [place] Review of Systems Acute medical concerns: No Medical Review of Systems: unchanged Mental Status Exam Mental Status Exam Patient Appearance: Well Grooomed Patient Orientation: Person and Situation Level of Consciousness: Awake Patient Behavior: Appropriate Mood Description: Calm Affect Description: Constricted Ability to Follow Directions: Good Speech Pattern: Clear Hallucinations: None Delusions: Not Present Thought Process: Linear Thought Content: positive for Intact Judgement: Fair Diagnostics Vital Signs (24Hr): Vital Signs - 24 hr 11/20/20 18:00 11/21/20 06:00 Temperature 98.5 F 98.4 F Pulse Rate 79 77 Respiratory Rate 17 16 Blood Pressure 109/63 117/56 L Pulse Oximetry 98 97 Body Mass Index 18.5 Labs Results: 11/17/20 14:12 11/19/20 06:38 Medications Medications Current Medications Generic Name Dose Route Start Last Admin Trade Name Freq PRN Reason Stop Dose Admin Acetaminophen 650 mg 11/18/20 15:02 11/19/20 18:44 Acetaminophen 325 Mg Tablet PO 650 mg Q6H PRN Administration Headache/Pain Mild Scale (1-3) Al Hydroxide/Mg Hydroxide 30 ml 11/18/20 15:02 Magnesium Hydrox/Alum Hydrox 30 Ml Oral.Susp PO Q6H PRN Heartburn/Nausea Atorvastatin Calcium 20 mg 11/19/20 21:00 11/20/20 19:40 Atorvastatin Calcium 20 Mg Tablet PO 20 mg BEDTIME JO Administration Diazepam 10 mg 11/17/20 23:30 11/20/20 19:39 Diazepam 10 Mg Tablet PO 10 mg BEDTIME JO Administration Levothyroxine Sodium 50 mcg 11/18/20 06:00 11/21/20 06:20 Levothyroxine Sodium 50 Mcg Tablet PO 50 mcg DAILY@0600 JO Administration [place] Carbonate 300 mg 11/19/20 21:00 11/20/20 19:39 [place] Carbonate 300 Mg Tablet PO 300 mg BEDTIME JO Administration Melatonin 9 mg 11/18/20 21:00 11/20/20 19:40 Melatonin 3 Mg Tablet PO 9 mg BEDTIME JO Administration Patient Own Med ( 1 each 11/18/20 09:00 11/21/20 08:56 Linaclotide [Linzess PO 1 each ] 145 Mcg Capsule) DAILY JO Administration Patient Own Med ( 1 each 11/18/20 21:00 11/20/20 19:38 Olanzapine- PO 1 each Fluoxetine 3-25 Mg BEDTIME JO Administration Capsule) Pharmacy Consult 1 each 11/17/20 17:02 Consult Rx Perform Med Rec MISCELLANE ONCE PRN Consult order Polyethylene Glycol 17 gm 11/18/20 21:00 11/20/20 19:38 Polyethylene Glycol 3350 17 Gm Powd.Pack PO 17 gm BEDTIME JO Administration Trazodone HCl 50 mg 11/18/20 15:02 Trazodone Hcl 50 Mg Tablet PO BEDTIME PRN Insomnia Vitamin D 50 mcg 11/19/20 09:00 11/21/20 08:57 Cholecalciferol (Vitamin D3) 25 Mcg Tablet PO 50 mcg DAILY JO Administration Allergies Allergies Allergy/AdvReac Type Severity Reaction Status Date / Time No Known Allergies Allergy Verified 11/17/20 14:02 Assessment & Plan Assessment & Plan (1) Bipolar 1 disorder, depressed, severe: Status: Acute Code(s): F31.4 - Bipolar disorder, current episode depressed, severe, without psychotic features (2) Chronic nephropathy: Status: Acute Code(s): N03.9 - Chronic nephritic syndrome with unspecified morphologic changes Assessment and Plan: The patient is an elderly female with a long history of mood symptoms that started in her 20s with at least 3 admissions into the hospital. The patient had manic episodes but mostly depressive symptoms as she has failed to surrounding therapeutic interventions such as ECT, ketamine infusions and several medication trials. Plan 1. Keep [place] 300 mg p.o. q.h.s. 3. Blood work which basic metabolic panel, and LITH for Monday Greater than 50% of the session was spent on counseling and/or coordination of care Reason for contiued inpatient stay Substantial Risk for: inability to function, rapid decompensation and med/psych decompensation
[2020-11-21 13:47] LABS: Folate 17.9 ng/mL (> or = 4.0); Vitamin B12 480 pg/mL (200-900)
[2020-11-21 18:00] VITALS: BP 151/65; PULSE 86; RESP 16; TEMP 36.2; O2SAT 98
[2020-11-21] MEDS: polyethylene glycoL 3350 17 GM POWD.PACK PO (20:23)
[2020-11-21] MEDS: Lithium Carbonate 300 MG TABLET PO (20:24)
[2020-11-21] MEDS: diazePAM 10 MG TABLET PO (20:25)
[2020-11-21] MEDS: Melatonin 3 MG TABLET 9 MG PO (20:25)
[2020-11-21] MEDS: Atorvastatin Calcium 20 MG TABLET PO (20:25)
[2020-11-22] MEDS: Levothyroxine Sodium 50 MCG TABLET PO (06:17)
[2020-11-22 06:42] LABS: Lithium 0.55 mmol/L (0.60-1.20)
[2020-11-22 06:51] LABS: Anion Gap 7 (12-20); Blood Urea Nitrogen 20 mg/dL (9-16); Calcium 10.3 mg/dL (8.4-10.2); Carbon Dioxide 29 mmol/L (22-29); Chloride 111 mmol/L (96-108); Creatinine Clr Calc Pharmacy 37.2; Estimated Glomerular Filt Rate 49; Glucose Random 84 mg/dL (60-115); Potassium 4.4 mmol/L (3.3-5.1); Sodium 143 mmol/L (135-145)
--- NOTE | 2020-11-22 08:48 | P.PNPSI_ITS ---
Subjective Subjective Date of Service: 11/22/20 Reason For Visit: depression Interim History: Nursing staff reported that she has slept well. Today she had blood work and her lithium level is 0.55 with no changes on his basic metabolic panel. We discussed with the patient of results and she agreed to keep on the same medications until we have a family meeting with her . She still dysphoric, with anhedonia and lack of energy but no psychotic symptoms. Medication Compliance: Yes Side effects from medications: No Review of Systems Acute medical concerns: No Medical Review of Systems: unchanged Mental Status Exam Mental Status Exam Patient Appearance: Well Grooomed Patient Orientation: Person, Place, Time and Situation Level of Consciousness: Awake Patient Behavior: Appropriate Mood Description: Calm and Depressed Affect Description: Constricted Patient Cognition Impaired: No Ability to Follow Directions: Good Speech Pattern: Clear Memory Description: Intact Hallucinations: None Delusions: Not Present Thought Process: Linear Thought Content: positive for Circumstantial Judgement: Fair Diagnostics Vital Signs (24Hr): Vital Signs - 24 hr 11/21/20 18:00 Temperature 97.2 F Pulse Rate 86 Respiratory Rate 16 Blood Pressure 151/65 H Pulse Oximetry 98 Body Mass Index 18.5 Labs Results: 11/17/20 14:12 11/22/20 06:13 Labs: Laboratory Results - last 48 hr 11/19/20 11/22/20 11/22/20 06:38 06:13 06:13 Sodium 143 Potassium 4.4 Chloride 111 H Carbon Dioxide 29 Anion Gap 7 L BUN 20 H Creatinine 1.09 Estim Creat Clear Calc 37.2 Estimated GFR 49 Random Glucose 84 Calcium 10.3 H Vitamin B12 480 Folate 17.9 [place] 0.55 L Medications Medications Current Medications Generic Name Dose Route Start Last Admin Trade Name Freq PRN Reason Stop Dose Admin Acetaminophen 650 mg 11/18/20 15:02 11/19/20 18:44 Acetaminophen 325 Mg Tablet PO 650 mg Q6H PRN Administration Headache/Pain Mild Scale (1-3) Al Hydroxide/Mg Hydroxide 30 ml 11/18/20 15:02 Magnesium Hydrox/Alum Hydrox 30 Ml Oral.Susp PO Q6H PRN Heartburn/Nausea Atorvastatin Calcium 20 mg 11/19/20 21:00 11/21/20 20:25 Atorvastatin Calcium 20 Mg Tablet PO 20 mg BEDTIME OJ Administration Diazepam 10 mg 11/17/20 23:30 11/21/20 20:25 Diazepam 10 Mg Tablet PO 10 mg BEDTIME JO Administration Levothyroxine Sodium 50 mcg 11/18/20 06:00 11/22/20 06:17 Levothyroxine Sodium 50 Mcg Tablet PO 50 mcg DAILY@0600 JO Administration [place] Carbonate 300 mg 11/19/20 21:00 11/21/20 20:24 [place] Carbonate 300 Mg Tablet PO 300 mg BEDTIME OJ Administration Melatonin 9 mg 11/18/20 21:00 11/21/20 20:25 Melatonin 3 Mg Tablet PO 9 mg BEDTIME JO Administration Patient Own Med ( 1 each 11/18/20 09:00 11/21/20 08:56 Linaclotide [Linzess PO 1 each ] 145 Mcg Capsule) DAILY JO Administration Patient Own Med ( 1 each 11/18/20 21:00 11/21/20 20:24 Olanzapine- PO 1 each Fluoxetine 3-25 Mg BEDTIME JO Administration Capsule) Pharmacy Consult 1 each 11/17/20 17:02 Consult Rx Perform Med Rec MISCELLANE ONCE PRN Consult order Polyethylene Glycol 17 gm 11/18/20 21:00 11/21/20 20:23 Polyethylene Glycol 3350 17 Gm Powd.Pack PO 17 gm BEDTIME JO Administration Trazodone HCl 50 mg 11/18/20 15:02 Trazodone Hcl 50 Mg Tablet PO BEDTIME PRN Insomnia Vitamin D 50 mcg 11/19/20 09:00 11/21/20 08:57 Cholecalciferol (Vitamin D3) 25 Mcg Tablet PO 50 mcg DAILY JO Administration Allergies Allergies Allergy/AdvReac Type Severity Reaction Status Date / Time No Known Allergies Allergy Verified 11/17/20 14:02 Assessment & Plan Assessment & Plan (1) Bipolar 1 disorder, depressed, severe: Status: Acute Code(s): F31.4 - Bipolar disorder, current episode depressed, severe, without psychotic features (2) Chronic nephropathy: Status: Acute Code(s): N03.9 - Chronic nephritic syndrome with unspecified morphologic changes Assessment and Plan: The patient is an elderly female with a long history of mood symptoms that started in her 20s with at least 3 admissions into the hospital. The patient had manic episodes but mostly depressive symptoms as she has failed to surrounding therapeutic interventions such as ECT, ketamine infusions and several medication trials. Plan 1. Keep [place] 300 mg p.o. q.h.s. 2. Arrange family meeting pretty soon. 3. Gather more collateral. Greater than 50% of the session was spent on counseling and/or coordination of care Reason for contiued inpatient stay Substantial Risk for: inability to function, rapid decompensation and med/psych decompensation
[2020-11-22] MEDS: Cholecalciferol (Vitamin D3) 25 MCG TABLET 50 MCG PO (09:48)
[2020-11-22 10:11] VITALS: BP 123/61; PULSE 78; RESP 18; TEMP 36.5; O2SAT 97
[2020-11-22 17:51] VITALS: BP 156/75; PULSE 86; RESP 16; TEMP 36.7; O2SAT 98
[2020-11-22] MEDS: polyethylene glycoL 3350 17 GM POWD.PACK PO (20:09)
[2020-11-22] MEDS: Melatonin 3 MG TABLET 9 MG PO (20:09)
[2020-11-22] MEDS: Lithium Carbonate 300 MG TABLET PO (20:09)
[2020-11-22] MEDS: diazePAM 10 MG TABLET PO (20:10)
[2020-11-22] MEDS: Atorvastatin Calcium 20 MG TABLET PO (20:18)
[2020-11-23] MEDS: Levothyroxine Sodium 50 MCG TABLET PO (06:00)
[2020-11-23 06:10] VITALS: BP 141/70; PULSE 74; RESP 16; TEMP 36.3; O2SAT 100
[2020-11-23] MEDS: Cholecalciferol (Vitamin D3) 25 MCG TABLET 50 MCG PO (09:01)
[2020-11-23] MEDS: polyethylene glycoL 3350 17 GM POWD.PACK PO ×2 (10:44→20:06)
--- NOTE | 2020-11-23 11:38 | HO.PSYCHPN ---
Subjective Subjective Date of Service: 11/24/20 Reason For Visit: depression Interim History: Nursing staff reported that appear likes to bother her but she has been extremely assertive. Currently her lithium and other medications have not produced new symptoms or side effects. On interview, the patient reported feeling dysphoric but with no suicidal ideation, overall, she feels a little better. We discussed the case with OT and they will assess her [place] pretty soon. Review of Systems Acute medical concerns: No Medical Review of Systems: unchanged Mental Status Exam Mental Status Exam Patient Appearance: Well Grooomed Patient Orientation: Person, Place and Situation Level of Consciousness: Awake Patient Behavior: Appropriate and Cooperative Mood Description: Suspicious Affect Description: Constricted Patient Cognition Impaired: No Ability to Follow Directions: Good Speech Pattern: Clear Hallucinations: None Delusions: Not Present Thought Process: Goal Oriented Thought Content: positive for Circumstantial Judgement: Fair Diagnostics Vital Signs (24Hr): Vital Signs - 24 hr 11/22/20 17:51 11/23/20 06:10 Temperature 98.0 F 97.4 F Pulse Rate 86 74 Respiratory Rate 16 16 Blood Pressure 156/75 H 141/70 H Pulse Oximetry 98 100 Body Mass Index 18.5 Labs Results: 11/17/20 14:12 11/22/20 06:13 Labs: Laboratory Results - last 48 hr 11/19/20 11/22/20 11/22/20 06:38 06:13 06:13 Sodium 143 Potassium 4.4 Chloride 111 H Carbon Dioxide 29 Anion Gap 7 L BUN 20 H Creatinine 1.09 Estim Creat Clear Calc 37.2 Estimated GFR 49 Random Glucose 84 Calcium 10.3 H Vitamin B12 480 Folate 17.9 [place] 0.55 L Medications Medications Current Medications Generic Name Dose Route Start Last Admin Trade Name Freq PRN Reason Stop Dose Admin Acetaminophen 650 mg 11/18/20 15:02 11/19/20 18:44 Acetaminophen 325 Mg Tablet PO 650 mg Q6H PRN Administration Headache/Pain Mild Scale (1-3) Al Hydroxide/Mg Hydroxide 30 ml 11/18/20 15:02 Magnesium Hydrox/Alum Hydrox 30 Ml Oral.Susp PO Q6H PRN Heartburn/Nausea Atorvastatin Calcium 20 mg 11/19/20 21:00 11/22/20 20:18 Atorvastatin Calcium 20 Mg Tablet PO 20 mg BEDTIME JO Administration Levothyroxine Sodium 50 mcg 11/18/20 06:00 11/23/20 06:00 Levothyroxine Sodium 50 Mcg Tablet PO 50 mcg DAILY@0600 JO Administration [place] Carbonate 300 mg 11/19/20 21:00 11/22/20 20:09 [place] Carbonate 300 Mg Tablet PO 300 mg BEDTIME JO Administration Melatonin 9 mg 11/18/20 21:00 11/22/20 20:09 Melatonin 3 Mg Tablet PO 9 mg BEDTIME JO Administration Patient Own Med ( 1 each 11/18/20 09:00 11/23/20 09:01 Linaclotide [Linzess PO 1 each ] 145 Mcg Capsule) DAILY JO Administration Patient Own Med ( 1 each 11/18/20 21:00 11/22/20 20:10 Olanzapine- PO 1 each Fluoxetine 3-25 Mg BEDTIME JO Administration Capsule) Pharmacy Consult 1 each 11/17/20 17:02 Consult Rx Perform Med Rec MISCELLANE ONCE PRN Consult order Polyethylene Glycol 17 gm 11/18/20 21:00 11/22/20 20:09 Polyethylene Glycol 3350 17 Gm Powd.Pack PO 17 gm BEDTIME JO Administration Polyethylene Glycol 17 gm 11/23/20 10:19 11/23/20 10:44 Polyethylene Glycol 3350 17 Gm Powd.Pack PO 17 gm DAILY PRN Administration Constipation Trazodone HCl 50 mg 11/18/20 15:02 Trazodone Hcl 50 Mg Tablet PO BEDTIME PRN Insomnia Vitamin D 50 mcg 11/19/20 09:00 11/23/20 09:01 Cholecalciferol (Vitamin D3) 25 Mcg Tablet PO 50 mcg DAILY JO Administration Allergies Allergies Allergy/AdvReac Type Severity Reaction Status Date / Time No Known Allergies Allergy Verified 11/17/20 14:02 Assessment & Plan Assessment & Plan (1) Bipolar 1 disorder, depressed, severe: Status: Acute Code(s): F31.4 - Bipolar disorder, current episode depressed, severe, without psychotic features (2) Chronic nephropathy: Status: Acute Code(s): N03.9 - Chronic nephritic syndrome with unspecified morphologic changes Assessment and Plan: The patient is an elderly female with a long history of mood symptoms that started in her 20s with at least 3 admissions into the hospital. The patient had manic episodes but mostly depressive symptoms as she has failed to surrounding therapeutic interventions such as ECT, ketamine infusions and several medication trials. Plan 1. Keep [place] 300 mg p.o. q.h.s. 2. Arrange family meeting pretty soon. 3. Gather more collateral. Greater than 50% of the session was spent on counseling and/or coordination of care Reason for contiued inpatient stay Substantial Risk for: inability to function, rapid decompensation and med/psych decompensation
--- NOTE | 2020-11-23 14:32 | MHC.CLN ---
FOLLOW UP STAFF REPORTS THAT PATIENT IS EATING WELL. CONTINUE REGULAR DIET AND ENSURE [address] TO FOLLOW WEEKLY.
[2020-11-23] MEDS: Lithium Carbonate 300 MG TABLET PO (20:07)
[2020-11-23] MEDS: Melatonin 3 MG TABLET 9 MG PO (20:07)
[2020-11-23] MEDS: Atorvastatin Calcium 20 MG TABLET PO (20:07)
[2020-11-23 20:27] VITALS: BP 153/76; PULSE 69; RESP 18; TEMP 36.2; O2SAT 99
[2020-11-24 05:55] VITALS: BP 108/72; PULSE 81; RESP 16; TEMP 37.1; O2SAT 97
[2020-11-24] MEDS: Levothyroxine Sodium 50 MCG TABLET PO (05:56)
[2020-11-24] MEDS: Cholecalciferol (Vitamin D3) 25 MCG TABLET 50 MCG PO (08:30)
--- NOTE | 2020-11-24 12:48 | P.PNPSI_ITS ---
Subjective Subjective Date of Service: 11/24/20 Reason For Visit: depression Interim History: The patient has attended to groups, she complained of lack of energy but she is trying to push herself. On interview, the patient admitted that she is less dysphoric, she denies side effects with the current medication. On physical exam there were no tremors or EPS. Medication Compliance: Yes Side effects from medications: No Attending Groups: Yes Review of Systems Acute medical concerns: No Medical Review of Systems: unchanged Mental Status Exam Mental Status Exam Patient Appearance: Well Grooomed Patient Orientation: Person, Place, Time and Situation Level of Consciousness: Awake and Appropriate Patient Behavior: Cooperative Mood Description: Relaxed Affect Description: Constricted Patient Cognition Impaired: No Ability to Follow Directions: Good Speech Pattern: Clear Memory Description: Intact Hallucinations: None Delusions: Not Present Thought Process: Goal Oriented Thought Content: positive for Circumstantial Judgement: Fair Diagnostics Vital Signs (24Hr): Vital Signs - 24 hr 11/23/20 20:27 11/24/20 05:55 Temperature 97.1 F 98.7 F Pulse Rate 69 81 Respiratory Rate 18 16 Blood Pressure 153/76 H 108/72 Pulse Oximetry 99 97 Body Mass Index 18.5 Labs Results: 11/17/20 14:12 11/22/20 06:13 Medications Medications Current Medications Generic Name Dose Route Start Last Admin Trade Name [place] PRN Reason Stop Dose Admin Acetaminophen 650 mg 11/18/20 15:02 11/19/20 18:44 Acetaminophen 325 Mg Tablet PO 650 mg Q6H PRN Administration Headache/Pain Mild Scale (1-3) Al Hydroxide/Mg Hydroxide 30 ml 11/18/20 15:02 Magnesium Hydrox/Alum Hydrox 30 Ml Oral.Susp PO Q6H PRN Heartburn/Nausea Atorvastatin Calcium 20 mg 11/19/20 21:00 11/23/20 20:07 Atorvastatin Calcium 20 Mg Tablet PO 20 mg BEDTIME JO Administration Levothyroxine Sodium 50 mcg 11/18/20 06:00 11/24/20 05:56 Levothyroxine Sodium 50 Mcg Tablet PO 50 mcg DAILY@0600 JO Administration [place] Carbonate 300 mg 11/19/20 21:00 11/23/20 20:07 [place] Carbon[place] 300 Mg Tablet PO 300 mg BEDTIME JO Administration Melatonin 9 mg 11/18/20 21:00 11/23/20 20:07 Melatonin 3 Mg Tablet PO 9 mg BEDTIME JO Administration Patient Own Med ( 1 each 11/18/20 09:00 11/24/20 08:31 Linaclotide [Linzess PO Not Given ] 145 Mcg Capsule) DAILY JO Patient Own Med ( 1 each 11/18/20 21:00 11/23/20 20:07 Olanzapine- PO 1 each Fluoxetine 3-25 Mg BEDTIME JO Administration Capsule) Pharmacy Consult 1 each 11/17/20 17:02 Consult Rx Perform Med Rec MISCELLANE ONCE PRN Consult order Polyethylene Glycol 17 gm 11/18/20 21:00 11/23/20 20:06 Polyethylene Glycol 3350 17 Gm Powd.Pack PO 17 gm BEDTIME JO Administration Polyethylene Glycol 17 gm 11/23/20 10:19 11/23/20 10:44 Polyethylene Glycol 3350 17 Gm Powd.Pack PO 17 gm DAILY PRN Administration Constipation Trazodone HCl 50 mg 11/18/20 15:02 Trazodone Hcl 50 Mg Tablet PO BEDTIME PRN Insomnia Vitamin D 50 mcg 11/19/20 09:00 11/24/20 08:30 Cholecalciferol (Vitamin D3) 25 Mcg Tablet PO 50 mcg DAILY JO Administration Allergies Allergies Allergy/AdvReac Type Severity Reaction Status Date / Time No Known Allergies Allergy Verified 11/17/20 14:02 Assessment & Plan Assessment & Plan (1) Bipolar 1 disorder, depressed, severe: Status: Acute Code(s): F31.4 - Bipolar disorder, current episode depressed, severe, without psychotic features (2) Chronic nephropathy: Status: Acute Code(s): N03.9 - Chronic nephritic syndrome with unspecified morphologic changes Assessment and Plan: The patient is an elderly female with a long history of mood symptoms that started in her 20s with at least 3 admissions into the hospital. The patient had manic episodes but mostly depressive symptoms as she has failed to surrounding therapeutic interventions such as ECT, ketamine infusions and several medication trials. Plan 1. Keep [place] 300 mg p.o. q.h.s. 2. Arrange family meeting pretty soon. 3. Gather more collateral. Greater than 50% of the session was spent on counseling and/or coordination of care Reason for contiued inpatient stay Substantial Risk for: inability to function, rapid decompensation and med/psych decompensation
[2020-11-24 18:53] VITALS: BP 127/69; PULSE 70; RESP 16; TEMP 37; O2SAT 98
[2020-11-24] MEDS: Atorvastatin Calcium 20 MG TABLET PO (21:34)
[2020-11-24] MEDS: Lithium Carbonate 300 MG TABLET PO (21:34)
[2020-11-24] MEDS: Melatonin 3 MG TABLET 9 MG PO (21:34)
[2020-11-24] MEDS: polyethylene glycoL 3350 17 GM POWD.PACK PO (21:35)
[2020-11-25] MEDS: Levothyroxine Sodium 50 MCG TABLET PO (06:35)
[2020-11-25 08:03] VITALS: BP 120/71; PULSE 69; TEMP 36.7; O2SAT 95
[2020-11-25] MEDS: Cholecalciferol (Vitamin D3) 25 MCG TABLET 50 MCG PO (08:25)
--- NOTE | 2020-11-25 11:40 | P.PNPSI_ITS ---
Subjective Subjective Date of Service: 11/25/20 Reason For Visit: depression Subjective Notes: Conditional Voluntary Interim History: Nursing staff has noticed that the patient gets confused at times. The home health care social worker has noticed she participated very well in groups. On interview, the patient reported brighter affect and less dysphoria. Tomorrow we will have a family meeting with her . Medication Compliance: Yes Side effects from medications: No Attending Groups: Yes Review of Systems Acute medical concerns: No Medical Review of Systems: unchanged Mental Status Exam Mental Status Exam Patient Appearance: Well Grooomed Patient Orientation: Person, Place, Time and Situation Level of Consciousness: Awake Patient Behavior: Cooperative Mood Description: Depressed Affect Description: Constricted Patient Cognition Impaired: No Ability to Follow Directions: Good Speech Pattern: Clear Memory Description: Intact Hallucinations: None Delusions: Not Present Thought Process: Goal Oriented Thought Content: positive for Circumstantial Judgement: Fair Diagnostics Vital Signs (24Hr): Vital Signs - 24 hr 11/24/20 18:53 11/25/20 08:03 Temperature 98.6 F 98.0 F Pulse Rate 70 69 Respiratory Rate 16 Blood Pressure 127/69 120/71 Pulse Oximetry 98 95 Body Mass Index 18.5 Labs Results: 11/17/20 14:12 11/22/20 06:13 Medications Medications Current Medications Generic Name Dose Route Start Last Admin Trade Name Freq PRN Reason Stop Dose Admin Acetaminophen 650 mg 11/18/20 15:02 11/19/20 18:44 Acetaminophen 325 Mg Tablet PO 650 mg Q6H PRN Administration Headache/Pain Mild Scale (1-3) Al Hydroxide/Mg Hydroxide 30 ml 11/18/20 15:02 Magnesium Hydrox/Alum Hydrox 30 Ml Oral.Susp PO Q6H PRN Heartburn/Nausea Atorvastatin Calcium 20 mg 11/19/20 21:00 11/24/20 21:34 Atorvastatin Calcium 20 Mg Tablet PO 20 mg BEDTIME JO Administration Levothyroxine Sodium 50 mcg 11/18/20 06:00 11/25/20 06:35 Levothyroxine Sodium 50 Mcg Tablet PO 50 mcg DAILY@0600 JO Administration [place] Carbonate 300 mg 11/19/20 21:00 11/24/20 21:34 [place] Carbonate 300 Mg Tablet PO 300 mg BEDTIME JO Administration Melatonin 9 mg 11/18/20 21:00 11/24/20 21:34 Melatonin 3 Mg Tablet PO 9 mg BEDTIME JO Administration Patient Own Med ( 1 each 11/18/20 09:00 11/25/20 08:25 Linaclotide [Linzess PO 1 each ] 145 Mcg Capsule) DAILY JO Administration Patient Own Med ( 1 each 11/18/20 21:00 11/24/20 21:35 Olanzapine- PO 1 each Fluoxetine 3-25 Mg BEDTIME JO Administration Capsule) Pharmacy Consult 1 each 11/17/20 17:02 Consult Rx Perform Med Rec MISCELLANE ONCE PRN Consult order Polyethylene Glycol 17 gm 11/18/20 21:00 11/24/20 21:35 Polyethylene Glycol 3350 17 Gm Powd.Pack PO 17 gm BEDTIME JO Administration Polyethylene Glycol 17 gm 11/23/20 10:19 11/23/20 10:44 Polyethylene Glycol 3350 17 Gm Powd.Pack PO 17 gm DAILY PRN Administration Constipation Trazodone HCl 50 mg 11/18/20 15:02 Trazodone Hcl 50 Mg Tablet PO BEDTIME PRN Insomnia Vitamin D 50 mcg 11/19/20 09:00 11/25/20 08:25 Cholecalciferol (Vitamin D3) 25 Mcg Tablet PO 50 mcg DAILY JO Administration Allergies Allergies Allergy/AdvReac Type Severity Reaction Status Date / Time No Known Allergies Allergy Verified 11/17/20 14:02 Assessment & Plan Assessment & Plan (1) Bipolar 1 disorder, depressed, severe: Status: Acute Code(s): F31.4 - Bipolar disorder, current episode depressed, severe, without psychotic features (2) Chronic nephropathy: Status: Acute Code(s): N03.9 - Chronic nephritic syndrome with unspecified morphologic changes Assessment and Plan: The patient is an elderly female with a long history of mood symptoms that started in her 20s with at least 3 admissions into the hospital. The patient had manic episodes but mostly depressive symptoms as she has failed to surrounding therapeutic interventions such as ECT, ketamine infusions and several medication trials. Plan 1. Keep [place] 300 mg p.o. q.h.s. 2. Family meeting for tomorrow. 3. Blood work for tomorrow a.m. CBC with differential, BMP, TSH, lithium level. Greater than 50% of the session was spent on counseling and/or coordination of care Reason for contiued inpatient stay Substantial Risk for: inability to function, rapid decompensation and med/psych decompensation
[2020-11-25 18:00] VITALS: BP 129/83; PULSE 64; RESP 17; TEMP 36.9; O2SAT 100
[2020-11-25] MEDS: polyethylene glycoL 3350 17 GM POWD.PACK PO (19:53)
[2020-11-25] MEDS: Atorvastatin Calcium 20 MG TABLET PO (19:55)
[2020-11-25] MEDS: Lithium Carbonate 300 MG TABLET PO (19:55)
[2020-11-25] MEDS: Melatonin 3 MG TABLET 9 MG PO (19:56)
[2020-11-26 06:00] VITALS: BP 163/70; PULSE 84; RESP 16; TEMP 36.1; O2SAT 97
[2020-11-26] MEDS: Levothyroxine Sodium 50 MCG TABLET PO (06:23)
[2020-11-26 06:51] LABS: MANUAL DIFF FLAG NO
[2020-11-26 07:00] VITALS: BMI 19.1
[2020-11-26 07:14] LABS: Basophils Absolute Auto 0.1 X10*3/uL (0.0-0.2); Basophils Percent Auto 1.1 % (0-2); Eosinophils Absolute Auto 0.3 X10*3/uL (0.0-0.4); Eosinophils Percent Auto 3.6 % (0-4); Hematocrit 40.8 % (37-47); Hemoglobin 13.4 g/dl (12.0-16.0); Imm Gran Abs Auto 0.02 X10*3/uL (0.00-0.03); Imm Gran Pct Auto 0.3 % (0.0-0.4); Lithium 0.58 mmol/L (0.60-1.20); Lymphocytes Absolute Auto 1.8 X10*3/uL (1.2-4.9); Lymphocytes Percent Auto 24.2 % (20-40); Mean Corpuscular HGB Conc 32.8 g/dl (31.0-35.0); Mean Corpuscular Hemoglobin 28.6 pg (27.0-33.0); Monocytes Absolute Auto 0.8 X10*3/uL (0.1-1.2); Monocytes Percent Auto 10.1 % (2-11); Neutrophils Absolute Auto 4.6 X10*3/uL (2.0-8.3); Neutrophils Percent Auto 60.7 % (45-73); Platelet Count 318 X10*3/uL (160-400); Red Blood Count 4.69 X10*6/uL (4.20-5.50); White Blood Count 7.5 X10*3/uL (4.8-10.8)
[2020-11-26 07:22] LABS: Anion Gap 9 (12-20); Blood Urea Nitrogen 19 mg/dL (9-16); Calcium 10.6 mg/dL (8.4-10.2); Carbon Dioxide 28 mmol/L (22-29); Chloride 109 mmol/L (96-108); Creatinine Clr Calc Pharmacy 38.3; Estimated Glomerular Filt Rate 51; Glucose Random 89 mg/dL (60-115); Potassium 4.1 mmol/L (3.3-5.1); Sodium 142 mmol/L (135-145)
[2020-11-26 07:41] LABS: Thyroid Stimulating Hormone 0.75 uIU/mL (0.32-4.0)
[2020-11-26] MEDS: Cholecalciferol (Vitamin D3) 25 MCG TABLET 50 MCG PO (09:41)
--- NOTE | 2020-11-26 12:26 | P.PNPSI_ITS ---
Subjective Subjective Date of Service: 11/26/20 Reason For Visit: depression Interim History: The patient reported improvement of her dysphoria. Today we had a meeting with her and we agreed to discharge tomorrow seems she is much better. The patient denies side effects with the current treatment. Blood work today showed a lithium level of 0.58 and normal blood work Review of Systems Acute medical concerns: No Medical Review of Systems: unchanged Mental Status Exam Mental Status Exam Patient Appearance: Well Grooomed Patient Orientation: Person and Situation Level of Consciousness: Awake Patient Behavior: Cooperative Mood Description: Constricted Affect Description: Constricted Patient Cognition Impaired: No Ability to Follow Directions: Good Speech Pattern: Clear Hallucinations: None Delusions: Not Present Thought Process: Goal Oriented Thought Content: positive for Circumstantial Judgement: Fair Diagnostics Vital Signs (24Hr): Vital Signs - 24 hr 11/25/20 18:00 11/26/20 06:00 Temperature 98.4 F 97.0 F Pulse Rate 64 84 Respiratory Rate 17 16 Blood Pressure 129/83 163/70 H Pulse Oximetry 100 97 Body Mass Index 18.5 Labs Results: 11/26/20 06:45 11/26/20 06:45 Labs: Laboratory Results - last 48 hr 11/26/20 11/26/20 11/26/20 06:45 06:45 06:45 WBC 7.5 RBC 4.69 Hgb 13.4 Hct 40.8 MCV 87.0 MCH 28.6 MCHC 32.8 RDW 13.0 Plt Count 318 MPV 9.0 L Immature Gran % (Auto) 0.3 Neut % (Auto) 60.7 Lymph % (Auto) 24.2 [place] % (Auto) 10.1 Eos % (Auto) 3.6 Baso % (Auto) 1.1 Lymph # (Auto) 1.8 [place] # (Auto) 0.8 Eos # (Auto) 0.3 Baso # (Auto) 0.1 Abs Immat Gran (auto) 0.02 Absolute Neuts (auto) 4.6 Absolute Nucleated RBC 0.000 Nucleated RBC % (auto) 0.0 Sodium 142 Potassium 4.1 Chloride 109 H Carbon Dioxide 28 Anion Gap 9 L BUN 19 H Creatinine 1.06 Estim Creat Clear Calc 38.3 Estimated GFR 51 Random Glucose 89 Calcium 10.6 H TSH 0.75 [place] 0.58 L Medications Medications Current Medications Generic Name Dose Route Start Last Admin Trade Name Freq PRN Reason Stop Dose Admin Acetaminophen 650 mg 11/18/20 15:02 11/19/20 18:44 Acetaminophen 325 Mg Tablet PO 650 mg Q6H PRN Administration Headache/Pain Mild Scale (1-3) Al Hydroxide/Mg Hydroxide 30 ml 11/18/20 15:02 Magnesium Hydrox/Alum Hydrox 30 Ml Oral.Susp PO Q6H PRN Heartburn/Nausea Atorvastatin Calcium 20 mg 11/19/20 21:00 11/25/20 19:55 Atorvastatin Calcium 20 Mg Tablet PO 20 mg BEDTIME JO Administration Levothyroxine Sodium 50 mcg 11/18/20 06:00 11/26/20 06:23 Levothyroxine Sodium 50 Mcg Tablet PO 50 mcg DAILY@0600 JO Administration [place] Carbonate 300 mg 11/19/20 21:00 11/25/20 19:55 [place] Carbonate 300 Mg Tablet PO 300 mg BEDTIME JO Administration Melatonin 9 mg 11/18/20 21:00 11/25/20 19:56 Melatonin 3 Mg Tablet PO 9 mg BEDTIME JO Administration Patient Own Med ( 1 each 11/18/20 09:00 11/26/20 09:41 Linaclotide [Linzess PO 1 each ] 145 Mcg Capsule) DAILY JO Administration Patient Own Med ( 1 each 11/18/20 21:00 11/25/20 19:58 Olanzapine- PO 1 each Fluoxetine 3-25 Mg BEDTIME JO Administration Capsule) Pharmacy Consult 1 each 11/17/20 17:02 Consult Rx Perform Med Rec MISCELLANE ONCE PRN Consult order Polyethylene Glycol 17 gm 11/18/20 21:00 11/25/20 19:53 Polyethylene Glycol 3350 17 Gm Powd.Pack PO 17 gm BEDTIME JO Administration Polyethylene Glycol 17 gm 11/23/20 10:19 11/23/20 10:44 Polyethylene Glycol 3350 17 Gm Powd.Pack PO 17 gm DAILY PRN Administration Constipation Trazodone HCl 50 mg 11/18/20 15:02 Trazodone Hcl 50 Mg Tablet PO BEDTIME PRN Insomnia Vitamin D 50 mcg 11/19/20 09:00 11/26/20 09:41 Cholecalciferol (Vitamin D3) 25 Mcg Tablet PO 50 mcg DAILY JO Administration Allergies Allergies Allergy/AdvReac Type Severity Reaction Status Date / Time No Known Allergies Allergy Verified 11/17/20 14:02 Assessment & Plan Assessment & Plan (1) Bipolar 1 disorder, depressed, severe: Status: Acute Code(s): F31.4 - Bipolar disorder, current episode depressed, severe, without psychotic features (2) Chronic nephropathy: Status: Acute Code(s): N03.9 - Chronic nephritic syndrome with unspecified morphologic changes Assessment and Plan: The patient is an elderly female with a long history of mood symptoms that started in her 20s with at least 3 admissions into the hospital. The patient had manic episodes but mostly depressive symptoms as she has failed to surrounding therapeutic interventions such as ECT, ketamine infusions and several medication trials. Plan 1. Keep [place] 300 mg p.o. q.h.s. 2. Family meeting for tomorrow. 3. Blood work for tomorrow a.m. CBC with differential, BMP, TSH, lithium level came back within normal limits Greater than 50% of the session was spent on counseling and/or coordination of care Reason for contiued inpatient stay Substantial Risk for: inability to function, rapid decompensation and med/psych decompensation
--- NOTE | 2020-11-26 13:37 | PC.NURSE ---
Pt participated in [facility] screen on this date, /30, indicating cognition is within normal limits, nurse and MD aware of results
[2020-11-26 18:00] VITALS: BP 124/59; PULSE 68; RESP 17; TEMP 37.1; O2SAT 97
[2020-11-26] MEDS: Lithium Carbonate 300 MG TABLET PO (20:35)
[2020-11-26] MEDS: Melatonin 3 MG TABLET 9 MG PO (20:35)
[2020-11-26] MEDS: Atorvastatin Calcium 20 MG TABLET PO (20:35)
[2020-11-26] MEDS: polyethylene glycoL 3350 17 GM POWD.PACK PO (20:45)
[2020-11-27] MEDS: Levothyroxine Sodium 50 MCG TABLET PO (05:41)
--- NOTE | 2020-11-27 08:16 | P.DS_ITS ---
DS: Providers Provider Date of Service: 11/27/20 Date of admission: 11/18/20 15:02 Date of discharge: 11/27/20 Primary care physician: Rima Richards MD Attending physician on admission: Alvaro March Attending physician on discharge: Alvaro March DS: Diagnosis Discharge Diagnosis (1) Bipolar 1 disorder, depressed, severe: Status: Acute (2) Chronic nephropathy: Status: Acute DS: Medications Discharge Medications Home Medications: Home Medications Medication Instructions Recorded Confirmed atorvastatin 20 mg tablet 1 tab PO BEDTIME 11/17/20 11/19/20 diazepam 10 mg tablet 1 tab PO BEDTIME 11/17/20 11/17/20 levothyroxine 50 mcg tablet 1 tab PO DAILY 11/17/20 11/17/20 linaclotide 145 mcg capsule 1 cap PO DAILY 11/17/20 11/17/20 (Linzess) lithium carbonate 150 mg capsule 1 cap PO BEDTIME 11/17/20 11/17/20 olanzapine-fluoxetine 3 mg-25 mg 1 cap PO BEDTIME 11/17/20 11/17/20 capsule polyethylene glycol 3350 17 17 g PO QPM 11/17/20 11/17/20 gram/dose oral powder (Miralax) Vitamin D3 50 mcg PO DAILY 11/18/20 11/19/20 acetylcysteine 600 mg capsule (NAC) 600 mg PO BID 11/18/20 11/18/20 cholecalciferol (vitamin D3) 50 50 mcg PO DAILY 11/18/20 11/18/20 mcg (2,000 unit) capsule melatonin 10 mg tablet 10 mg PO BEDTIME PRN 11/18/20 11/18/20 Mental Status Exam Mental Status Exam Patient Appearance: Well Grooomed and Appropriate Patient Orientation: Person, Place, Time and Situation Level of Consciousness: Awake Patient Behavior: Appropriate, Cooperative and Good Eye Contact Mood Description: Calm and Appropriate Affect Description: Relaxed Patient Cognition Impaired: No Ability to Follow Directions: Excellent Speech Pattern: Clear Memory Description: Intact Hallucinations: None Delusions: Not Present Thought Process: Intact Thought Content: positive for Intact Judgement: Good Data Data Completed and Pending Completed studies during hospitalization [Text1]: 11/19/20 11/22/20 11/22/20 06:38 06:13 06:13 WBC RBC Hgb Hct MCV MCH MCHC RDW Plt Count MPV Immature Gran % (Auto) Neut % (Auto) Lymph % (Auto) [place] % (Auto) Eos % (Auto) Baso % (Auto) Lymph # (Auto) [place] # (Auto) Eos # (Auto) Baso # (Auto) Abs Immat Gran (auto) Absolute Neuts (auto) Absolute Nucleated RBC Nucleated RBC % (auto) Sodium 143 Potassium 4.4 Chloride 111 H Carbon Dioxide 29 Anion Gap 7 L BUN 20 H Creatinine 1.09 Estim Creat Clear Calc 37.2 Estimated GFR 49 Random Glucose 84 Calcium 10.3 H Vitamin B12 480 Folate 17.9 TSH [place] 0.55 L 11/26/20 11/26/20 11/26/20 06:45 06:45 06:45 WBC 7.5 RBC 4.69 Hgb 13.4 Hct 40.8 MCV 87.0 MCH 28.6 MCHC 32.8 RDW 13.0 Plt Count 318 MPV 9.0 L Immature Gran % (Auto) 0.3 Neut % (Auto) 60.7 Lymph % (Auto) 24.2 [place] % (Auto) 10.1 Eos % (Auto) 3.6 Baso % (Auto) 1.1 Lymph # (Auto) 1.8 [place] # (Auto) 0.8 Eos # (Auto) 0.3 Baso # (Auto) 0.1 Abs Immat Gran (auto) 0.02 Absolute Neuts (auto) 4.6 Absolute Nucleated RBC 0.000 Nucleated RBC % (auto) 0.0 Sodium 142 Potassium 4.1 Chloride 109 H Carbon Dioxide 28 Anion Gap 9 L BUN 19 H Creatinine 1.06 Estim Creat Clear Calc 38.3 Estimated GFR 51 Random Glucose 89 Calcium 10.6 H Vitamin B12 Folate TSH 0.75 [place] 0.58 L 11/17/20 Unknown Urine clean catch - Urine reza top Urine Culture - Final No growth. DS: Summary Hospital Course Hospital Course: The patient is a 75-year-old female with a long history of bipolar disorder that this started in her early 20s with a manic episode but most frequently with depressive episodes. The patient historically has being very stable on lithium for more than 30 years but 6 years ago, since she came up with an abnormal BC metabolic panel, lesion was discontinued and since then her mood to worsened, mostly with depressive symptoms. Please see HPI for more details. The patient was initially admitted due to exacerbation of depressive symptoms elicited by depressed mood, lack of energy, feelings of hopelessness and worthlessness, dot impaired her her activities of daily life. With [place] work several times to make sure that his basic metabolic panel and creatinine levels were normal and seems she was recently started on lithium back again up to 100 mg p.o. q.h.s. by her regular prescriber we discussed the risk and benefits and she agreed to titrate slowly. [place] was increased up to 300 mg p.o. q.h.s. with a normal creatinine levels pt a lithium level around 0.55. The patient's mood improved remarkably, she was able to participate in groups and she was very assertive. She is stable no safety concerns discharge planning was discussed. We had a family meeting with her and according to him she was nearly to baseline. Time spent discussing smoking cessation with patient: 3 to 10 minutes Status at Discharge Cognitive/behavioral status at discharge: At baseline, her [place] was 26/30 Functional status at discharge: independent ambulation Overall status at discharge: patient is back to baseline Time Spent with Patient Time attestation: Total time spent providing and/or coordinating discharge services: Time spent: Less than 30 minutes Discharge Plan Discharge Patient Disposition: Home, Self-Care Discharge Diagnosis: Bipolar Disorder Type I most recent episode depressed Referrals: Dr Bonilla [Other] - 12/10/20 1:00 pm (First appointment scheduled for 12/10/20 at 1:00pm. Donovan from the office will call you on 11/27/20 to confirm. ) [facility] [Other] - 1 Week (Referred for therapy placed and [facility] to follow up with you with appointment date and time. ) Rima Richards MD [Primary Care Provider] - 1 Week Discharge Medications: New lithium carbonate 300 mg Tablet 300 mg PO BEDTIME 30 Days Qty: 30 RF: 0 Continued atorvastatin 20 mg tablet 1 tab PO BEDTIME 30 Days Qty: 30 RF: 0 levothyroxine 50 mcg tablet 1 tab PO DAILY 30 Days Qty: 30 RF: 0 diazepam 10 mg tablet 1 tab PO BEDTIME 30 Days Qty: 30 RF: 0 polyethylene glycol 3350 [Miralax] 17 gram/dose Powder 17 g PO QPM 30 Days Qty: 510 RF: 0 acetylcysteine [NAC] 600 mg Capsule 600 mg PO BID 30 Days Qty: 60 RF: 0 olanzapine-fluoxetine 3-25 mg capsule 1 cap PO BEDTIME 30 Days Qty: 30 RF: 0 cholecalciferol (vitamin D3) 50 mcg (2,000 unit) Capsule 50 mcg PO DAILY 30 Days Qty: 30 RF: 0 melatonin 10 mg Tablet 10 mg PO BEDTIME PRN (Reason: Insomnia) 30 Days RF: 0 Linzess 145 mcg capsule 1 cap PO DAILY 30 Days Qty: 30 RF: 0 Vitamin D3 50 MCG 50 mcg PO DAILY 30 Days RF: 0 Discontinued lithium carbonate 150 mg capsule 1 cap PO BEDTIME RF: 0 Discharge Orders: Discharge Order (Routine); Ordered 11/27/20 Ordered By: Alvaro March Diet: regular diet Activity on Discharge: As tolerated Stand Alone Forms: Patient Portal Discharge page Care Plan Goals: Care Plan Goals achieved in the unit Health Concerns: Continue treatment with PCP Plan of Treatment: Continue medication management by psychiatrist in the community. Referral to psychotherapy Assessment: The patient is an elderly female with a history of depression due to bipolar type 1 [place] dysphoric seeing sleeping was discontinue due to increased creatinine. On admission, her basic metabolic panel showed normal creatinine and we restarted slowly up to a therapeutic level without any changes in her creatinine. Her mood improved and she has no safe in the community
[2020-11-27 08:38] VITALS: BP 126/77; PULSE 86; RESP 16; TEMP 36.9; O2SAT 97
[2020-11-27] MEDS: Cholecalciferol (Vitamin D3) 25 MCG TABLET 50 MCG PO (09:13)
--- NOTE | 2020-11-27 11:31 | PC.NURSE ---
Patient alert and oriented x4. No SI/HI/AV. Patient reports I am excited to be going home . All D/C information explained to patient and . All questions were answered. Patient verbalized understanding of discharge information. Appointment made with PCP for 12/21/20. All pertinent information faxed to providers.
== END 2020-11-27 11:17 | disposition home or self-care (01) | DRG 885 ==
LOC: HO.ED 11-18 14:59 → HO.PGERI 11-18 15:09
PROVIDERS: Nurse Practitioner Family; Admitting Provider Psychiatry & Neurology Psychiatry; Emergency Provider Emergency Medicine Emergency Medical Services; PCP Family Medicine; Visit Provider Psychiatry & Neurology Psychiatry
DX: F31.4 Bipolar disorder, current episode depressed, severe, without psychotic features (principal); N03.9 Chronic nephritic syndrome with unspecified morphologic changes; E03.9 Hypothyroidism, unspecified; Z20.822 Contact with and (suspected) exposure to COVID-19; Z79.890 Hormone replacement therapy; Z79.899 Other long term (current) drug therapy
CPT/HCPCS: 0241U; 36415; 80048; 80053; 80061; 80076; 80178; 81001; 82077; 82607; 82746; 83036; 84443; 85025; 87086; 93005; 99285